=== PATIENT | male | born 1935 | race Caucasian/White ===

== ENCOUNTER → 2017-06-03 16:07 | Outpatient (CLI) | payer MEDICARE, SELFPAY ==
[2017-06-03 17:40] LABS: Absolute Lymphocyte Count 1.23 X10^3/ul (0.83-4.51); Absolute Neutrophil Count 0.5 X10^3/uL (2.0-7.7); Basophil# 0.01 X10^3/uL; Basophil% 0.4 % (0-1); Eosinophil# 0.03 X10^3/uL; Eosinophils% 1.2 % (0-5); Hematocrit 22.8 % (40-54); Hemoglobin 7.6 g/dl (13.0-16.5); Lymphocyte # 1.23 X10^3/ul (4.0); Lymphocyte % 49.4 % (19-41); Mean Corp Hgb Conc 33.3 g/gl (32-36); Mean Corpuscular Hgb 41.1 pg (27.0-32.0); Mean Corpuscular Volume 123.2 fL (80-94); Mean Platelet Vol. 10.4 fl (6.2-12.0); Monocyte# 0.72 X10^3/uL; Monocyte% 28.9 % (0-10); Neutrophil # 0.49 X10^3/uL (2.7-7.7); Neutrophil % 19.7 % (47-70); Platelet Count 194 K/mm3 (150-450); RBC Distribution Width CV 15.3 % (11.6-14.6); RBC Distribution Width SD 65.9 fl (35.1-43.9); Red Blood Count 1.85 M/mm3 (4.6-6.2); White Blood Count 2.5 K/mm3 (4.4-11.0)
[2017-06-03 17:44] LABS: Ferritin 330 ng/mL (26-388); Iron 76 ug/dL (65-175); Iron Binding Capacity,Total 208 ug/dL (250-450)
[2017-06-03 17:48] LABS: Differential Indicated SCAN CRITERIA MET; POSITIVE COUNT NO; POSITIVE DIFFERENTIAL YES; POSITIVE MORPHOLOGY YES
[2017-06-05 16:09] LABS: PROEL- A/G Ratio 1.4 (0.7-1.7); PROEL- Albumin 4.4 g/dL (2.9-4.4); PROEL- Alpha-1 Globulin 0.2 g/dL (0.0-0.4); PROEL- Alpha-2 Globulin 0.4 g/dL (0.4-1.0); PROEL- Beta Globulin 0.8 g/dL (0.7-1.3); PROEL- Gamma Globulin 1.7 g/dL (0.4-1.8); PROEL- Globulin, Total 3.1 g/dL (2.2-3.9); PROEL- TOTAL PROTEIN 7.5 g/dL (6.0-8.5)
[2017-06-08 16:08] LABS: PROELU- Albumin, Urine 55.2 % (.); PROELU- Alpha-1-Globulin,Ur 3.8 % (.); PROELU- Alpha-2-Globulin,Ur 8.4 % (.); PROELU- Beta Globulin, Ur 16.4 % (.); PROELU- Gamma Globulin, Ur 16.2 % (.); Total Protein, Ur 18.2 mg/dL (Not Estab.)
== END ==
PROVIDERS: Family Provider Family Medicine; PCP Family Medicine; Visit Provider Family Medicine
DX: D64.9 Anemia, unspecified (principal)
CPT/HCPCS: 36415; 82728; 83540; 83550; 84165; 84166; 85025

== ENCOUNTER → 2017-09-02 16:17 | Outpatient (CLI) | payer MEDICARE, SELFPAY ==
[2017-09-02 17:55] LABS: Absolute Lymphocyte Count 1.17 X10^3/ul (0.83-4.51); Absolute Neutrophil Count 0.8 X10^3/uL (2.0-7.7); Eosinophil# 0.02 X10^3/uL; Eosinophils% 0.8 % (0-5); Hematocrit 21.7 % (40-54); Hemoglobin 7.5 g/dl (13.0-16.5); Immature Platelet Fraction 6.6 % (1.0-7.9); Lymphocyte # 1.17 X10^3/ul (4.0); Lymphocyte % 46.4 % (19-41); Mean Corp Hgb Conc 34.6 g/gl (32-36); Mean Corpuscular Hgb 39.7 pg (27.0-32.0); Mean Corpuscular Volume 114.8 fL (80-94); Mean Platelet Vol. 10.9 fl (6.2-12.0); Monocyte# 0.53 X10^3/uL; Neutrophil # 0.79 X10^3/uL (2.7-7.7); Neutrophil % 31.4 % (47-70); Platelet Count 152 K/mm3 (150-450); RBC Distribution Width CV 15.8 % (11.6-14.6); RBC Distribution Width SD 64.7 fl (35.1-43.9); RET-HE 39.3 pg (30-35); Red Blood Count 1.89 M/mm3 (4.6-6.2); Reticulocyte Count 1.63 % (0.5-1.5); White Blood Count 2.5 K/mm3 (4.4-11.0)
[2017-09-02 18:07] LABS: Differential Indicated SCAN CRITERIA MET; POSITIVE COUNT NO; POSITIVE DIFFERENTIAL YES; POSITIVE MORPHOLOGY NO
[2017-09-02 18:14] LABS: Anion Gap 8 (5-15); BUN 24 mg/dL (7-18); BUN/Creat Ratio 29.3 RATIO (10-20); Calcium,Total 8.6 mg/dL (8.5-10.1); Chloride 106 mmol/L (98-107); Creatinine, Serum 0.82 mg/dL (0.70-1.30); EST Glomerular Filtration Rate 96 mL/min (>60); Est Glom Filt Rate - Afr Amer 116 mL/min (>60); Ferritin 277 ng/mL (26-388); Glucose 104 mg/dL (74-106); Iron 94 ug/dL (65-175); Iron Binding Capacity,Total 202 ug/dL (250-450); Potassium 3.9 mmol/L (3.5-5.1); Sodium Level 141 mmol/L (136-145)
[2017-09-02 18:50] LABS: Platelet Estimate ADEQUATE (ADEQ)
[2017-09-02 18:51] LABS: Anisocytosis 1+
[2017-09-02 18:52] LABS: Hypochromasia RARE; Macrocytosis 2+
[2017-09-02 18:53] LABS: Ovalocyte 2+; Schistocytes RARE; Tear Drop Cell RARE
== END ==
PROVIDERS: Family Provider Family Medicine; PCP Family Medicine; Visit Provider Family Medicine
DX: D64.9 Anemia, unspecified (principal); I95.1 Orthostatic hypotension
CPT/HCPCS: 36415; 80048; 82728; 83540; 83550; 85025; 85045

== ENCOUNTER 2017-10-10 21:50 | Inpatient (IN) | payer MEDICARE, SELFPAY ==
[2017-10-10 21:51] VITALS: BP 92/59; PULSE 36; RESP 16; TEMP 36.6; O2SAT 98; BMI 24.8
--- NOTE | 2017-10-10 21:58 | EKG12_ITS ---
Test Reason : Blood Pressure : / mmHG Vent. Rate : 076 BPM Atrial Rate : 060 BPM P-R Int : 180 ms QRS Dur : 134 ms QT Int : 434 ms P-R-T Axes : 053 -27 -01 degrees QTc Int : 488 ms Sinus rhythm with frequent and consecutive Premature ventricular complexes Right bundle branch block Abnormal ECG Confirmed by JUAN A MARTÍNEZ, CHRISTINE ([id number]), research editor EBENEZER CHINCHILLA ([id number]) on 10/12/2017 3:06:24 PM Referred By: HERSON Confirmed By:CHRISTINE VELAZCO MD
--- NOTE | 2017-10-10 22:04 | ED.VISSUMM ---
- ER Visit Summary Date of Service: 10/10/17 Chief Complaint: Shortness of breath History of Present Illness: The patient is a 82 M with history of myelodysplastic syndrome presents to the emergency department shortness of breath. Patient states that over the past 2 days, he said gradually increasing shortness of breath. It is worse with exertion. He does feel mildly dizzy. He does describe orthopnea. The patient states that he was diagnosed with CHF before, but has never had any history of cardiac disease. He is not on any other medications. He denies any fevers or chills. He denies any chest pain. Physical Examination: Vital signs reviewed General: Well-nourished, well-developed Head: Normocephalic, atraumatic Eyes: Pupils equal and reactive, extraocular muscles intact Neck, supple, no lymphadenopathy Heart: Irregular rate and rhythm Respiratory: No distress, crackles in the bases bilaterally Abdomen: Soft, nontender, nondistended, no peritoneal signs Back: Nontender Extremities: Nontender, 1+ symmetric edema, no cords Skin: Normal color no rash Neuro: Alert and oriented, no focal or lateralizing deficits Test Results: [] Emergency Department Course and Treatment: The patient was placed on a monitor. He was bradycardic in triage, when placed on a monitor, he was sinus rhythm with ventricular bigeminy. There was no acute ischemic change on his EKG. Patient was placed on oxygen and giving a small fluid bolus due to his hypotension. Hypotension was resolved. Chest x-ray does show some mild cephalization but no large pleural effusions. I do feel that he has a component of mild CHF. The patient also has worsening anemia. Might of his myelodysplastic syndrome, dyspnea, and CHF, I do feel that he is going to require transfusion. The patient has never had formal workup for CHF. I do feel that he would likely require an echo and cardiac monitoring and likely diuresis in between packed red blood cells. Family is comfortable this plan of care. The patient will be admitted at this time. Treatment Plan: [] Disposition: Admission Impression: 1. Dyspnea 2. Symptomatic anemia 3. New CHF This note was generated with [email or web address] software. It may contain incorrect words, spelling, and punctuation that were not noted in review of the chart prior to signing ED Disposition - Plan for ED Patient: Chief Complaint: Shortness of Breath Referrals: Jose Escamilla MD [Primary Care Provider] -
[2017-10-10 22:06] VITALS: O2SAT 98
--- NOTE | 2017-10-10 22:10 | RAD_ITS ---
STUDY: X-RAY CHEST REASON FOR EXAM: Male, 82 years old. COMPLAINS OF SOB, WEAKNESS TODAY, CONCERNED HIS CHF IS GETTING WORSE. HR 36 IN TRIAGE TECHNIQUE: Single frontal view of the chest. COMPARISON: April 16, 2017 FINDINGS: Chronic appearing increased interstitial lung markings. Stable prominence of the heena. There is no demonstrated pleural abnormality. Enlarged heart size. Normal mediastinum and heena. Normal visualized pulmonary arteries. There is atherosclerotic calcification of the aortic arch with tortuosity. There are diffuse degenerative changes of the visualized thoracic spine. There is degenerative osteoarthritis of the bilateral shoulders. There is no demonstrated abnormality of the visualized soft tissue structures of the upper abdomen. RAD/Chest 1 View (Portable) IMPRESSION: There are no acute findings. Electronically Signed: Johnny Stern MD at 22:40 EDT , Service support ,
[2017-10-10 22:11] LABS: Absolute Lymphocyte Count 1.25 X10^3/ul (0.83-4.51); Absolute Neutrophil Count 1.1 X10^3/uL (2.0-7.7); Basophil# 0.01 X10^3/uL; Basophil% 0.3 % (0-1); Eosinophil# 0.02 X10^3/uL; Eosinophils% 0.6 % (0-5); Hematocrit 19.4 % (40-54); Hemoglobin 6.6 g/dl (13.0-16.5); Lymphocyte # 1.25 X10^3/ul (4.0); Lymphocyte % 36.1 % (19-41); Mean Corpuscular Hgb 41.8 pg (27.0-32.0); Mean Corpuscular Volume 122.8 fL (80-94); Mean Platelet Vol. 11.3 fl (6.2-12.0); Monocyte# 1.03 X10^3/uL; Monocyte% 29.8 % (0-10); Neutrophil # 1.14 X10^3/uL (2.7-7.7); Neutrophil % 32.9 % (47-70); Platelet Count 127 K/mm3 (150-450); RBC Distribution Width CV 16.3 % (11.6-14.6); RBC Distribution Width SD 69.1 fl (35.1-43.9); Red Blood Count 1.58 M/mm3 (4.6-6.2); White Blood Count 3.5 K/mm3 (4.4-11.0)
[2017-10-10 22:16] LABS: POSITIVE COUNT NO; POSITIVE DIFFERENTIAL NO
[2017-10-10 22:17] LABS: Differential Indicated SCAN CRITERIA MET; POSITIVE MORPHOLOGY YES
[2017-10-10 22:22] LABS: Bacteria 0 SEEN /hpf (None Seen); Mucous, Urine 0 SEEN /hpf (<or=2+); Red Blood Cells-Urine 0 SEEN /hpf (0-5); Squamous Epithelial Cells - UA 0 SEEN /hpf (0-5); White Blood Cells 0 SEEN /hpf (0-5)
[2017-10-10 22:24] LABS: Color, Urine Yellow (Yellow); Glucose, Dipstick Normal (Normal); Ketone-Dipstick Negative (Negative); Leukocyte Esterase-Dipstick Negative /ul (Negative); Nitrite-Dipstick Negative (Negative); Occult Blood-Urine Negative /ul (Negative); Protein-Dipstick 15 mg/dl (Negative); Urine Bilirubin Dipstick Negative (Negative); Urine Clarity Clear (Clear); Urine Urobilinogen Normal (Normal)
[2017-10-10 22:30] LABS: ALB/GLOB Ratio 1.2 RATIO (0.9-2.4); AST(SGOT) 14 U/L (15-37); Alanine Aminotransfer ALT/SGPT 28 U/L (16-61); Alkaline Phosphatase 68 U/L (45-117); Anion Gap 8 (5-15); BUN 23 mg/dL (7-18); Calcium,Total 8.7 mg/dL (8.5-10.1); Chloride 102 mmol/L (98-107); Creatinine, Serum 0.85 mg/dL (0.70-1.30); EST Glomerular Filtration Rate 91 mL/min (>60); Est Glom Filt Rate - Afr Amer 111 mL/min (>60); Estimated Creatinine Clearance 69.18 ml/min; Globulin 3.4 g/dL (2.2-4.2); Glucose 94 mg/dL (74-106); Potassium 4.5 mmol/L (3.5-5.1); Protein, Total 7.4 g/dL (6.4-8.2); Sodium Level 137 mmol/L (136-145)
[2017-10-10 22:40] LABS: Lactic Acid 0.9 mmol/L (0.4-2.0)
[2017-10-10 22:44] LABS: Anisocytosis 1+; Differential Comment SCANNED; Ovalocyte 1+
[2017-10-10 22:53] LABS: BNP,B-Type NATRIURETIC PEPTIDE 1120.4 pg/mL (0-100)
--- NOTE | 2017-10-10 23:12 | HP.PCM_ITS ---
Problem List (1) Pulmonary edema Status: Acute (2) Dyspnea Status: Acute (3) MDS (myelodysplastic syndrome), low grade Status: Chronic (4) Anemia Status: Chronic Qualifiers: Bone marrow failure anemia type: unspecified bone marrow failure (5) Leukopenia Status: Chronic History of Present Illness Date of Admission: 10/10/17 Chief Complaint: Dyspnea The patient is a 82 year old male w/ h/o MDS admitted for dyspnea. He has been SOB for the past 3-4 days but within the last 24 hours, he noted his SOB has gotten much worse. Nothing appeared to make it better or worse. SOB is associated with a mild nonproductive cough. He has light headedness today as well. His SOB is constant and severe, interfering with his ADLs. He was diagnosis with heart failure before but is not on any medication. He has no other complaint. Past Medical History Past Medical History (Chronic Problems): Chronic Problems (Last Reviewed 10/11/17 @ 05:07 by Asa Mattson MD) MDS (myelodysplastic syndrome), low grade (Chronic) Anemia (Chronic) Leukopenia (Chronic) Medical History: Medical History (Last Reviewed 10/11/17 @ 05:07 by Asa Mattson MD) Bladder cancer C67.9 Bronchitis J40 Neutropenia D70.9 Allergies No Known Allergies Allergy (Verified 10/10/17 21:56) Home Medications: Ambulatory Orders Medication Instructions Recorded Multivitamin [Multiple Vitamins] 1 tab PO DAILY 06/26/16 Nighttime Sleep Aid 25 mg PO QHS 06/26/16 [place] Oil/[place]-3 Fatty Acids [Sv 2 tab PO BID 06/26/16 [place] Oil 1,000 mg Softgel] Ascorbic Acid [Vitamin C] 500 mg PO BID 08/18/16 Calcium Carbonate/Vitamin D3 2 tablet PO BID 08/18/16 [Calcium 500-Vit D3 600 Tablet] Ubidecarenone/Vit E Acetate [Co 1 each PO BID 10/10/17 Q-10 100 mg Softgel] Lives: Spouse/ Significant Other Smoking Status: Never smoker Alcohol: None Drugs: None Review of Systems Constitutional: Denies: Chills, Fever, Weight Change HEENT: Denies: Head Aches, Sinus Congestion, Sinus Drainage Cardiovascular: Denies: Chest Pain, Palpitations Respiratory: Denies: Cough, Shortness of breath at rest, Sputum production Gastrointestinal: Denies: Abdominal Pain, Nausea, Vomiting Genitourinary: Denies: Dysuria Musculoskeletal: Denies: Joint Pain, Joint Tenderness Skin: Denies: Rash, Wounds Neurological: Denies: Numbness, Tingling, Focal weakness Psychiatric: Denies: Anxiety, Depression, Homicidal Ideations, Suicidal Ideations Hematologic/ Lymphatic: Denies: Easy Bruising, Easy Bleeding VTE Information - Inpt Only VTE Present on Admission: No VTE Mechan Device Prophylaxis: SCD's VTE Pharm Prophylaxis ordered?: Yes Patient Problems: Active and Suspected Problems (Last Reviewed 10/11/17 @ 05:07 by Asa Mattson MD) Pulmonary edema (Acute) Dyspnea (Acute) - Physical Exam General: Alert, Oriented x3, Cooperative HEENT: Atraumatic, PERRLA, EOMI, Normocephalic Neck: Supple, No JVD, Negative Carotid Bruits Lungs: Diminished, Short of Breath Cardiovascular: No murmurs, Irregular Rate Abdomen: Bowel Sounds Present, Soft, Non Tender Extremities: No edema, Capillary Refill Less than 3 Seconds Skin: No rashes, No breakdown Musculoskeletal: No Tenderness to Palpation of Joints or Extremities Neurological: Cranial nerves II-XII grossly intact Psych/Mental Status: Normal Affect, Appropriate Vital Signs Temp Pulse Resp BP Pulse Ox 97.8 F 36 L 16 92/59 L 98 10/10/17 21:51 10/10/17 21:51 10/10/17 21:51 10/10/17 21:51 10/10/17 21:51 Oxygen Flow Rate (L/min) 2 Oxygen Delivery Method Nasal Cannula Weight: 78.5 kg Body Mass Index (BMI) 24.8 Laboratory Tests Past 24 Hrs 10/10/17 10/10/17 10/10/17 22:00 22:00 22:00 WBC 3.5 L RBC 1.58 L Hgb 6.6 L Hct 19.4 L MCV 122.8 H MCH 41.8 H MCHC 34.0 RDW 16.3 H RDW Differential 69.1 H Plt Count 127 L MPV 11.3 Immature Gran % (Auto) 0.300 Neut % (Auto) 32.9 L Lymph % (Auto) 36.1 [place] % (Auto) 29.8 H Eos % (Auto) 0.6 Baso % (Auto) 0.3 Absolute Neuts (auto) 1.1 L Absolute Lymphs (auto) 1.25 Total Counted Not Reportable Differential Comment SCANNED Anisocytosis 1+ Ovalocytes 1+ Sodium 137 Potassium 4.5 Chloride 102 Carbon Dioxide 27.0 Anion Gap 8 BUN 23 H Creatinine 0.85 Estim Creat Clear Calc 69.18 Est GFR (MDRD) Af Amer 111 Est GFR (MDRD) Non-Af 91 BUN/Creatinine Ratio 27.0 H Glucose 94 Lactic Acid 0.9 Calcium 8.7 Total Bilirubin 0.70 AST 14 L ALT 28 Alkaline Phosphatase 68 Troponin I < 0.015 B-Natriuretic Peptide Total Protein 7.4 Albumin 4.0 Globulin 3.4 Albumin/Globulin Ratio 1.2 Urine Color Urine Clarity Urine pH Ur Specific [place] Urine Protein Urine Glucose (UA) Urine Ketones Urine Occult Blood Urine Nitrite Urine Bilirubin Urine Urobilinogen Ur Leukocyte Esterase Urine RBC Urine WBC Ur Squamous Epith Cells Urine Bacteria Urine Mucus Blood Type Antibody Screen Crossmatch 10/10/17 10/10/17 10/10/17 22:00 22:20 22:26 WBC RBC Hgb Hct MCV MCH MCHC RDW RDW Differential Plt Count MPV Immature Gran % (Auto) Neut % (Auto) Lymph % (Auto) [place] % (Auto) Eos % (Auto) Baso % (Auto) Absolute Neuts (auto) Absolute Lymphs (auto) Total Counted Differential Comment Anisocytosis Ovalocytes Sodium Potassium Chloride Carbon Dioxide Anion Gap BUN Creatinine Estim Creat Clear Calc Est GFR (MDRD) Af Amer Est GFR (MDRD) Non-Af BUN/Creatinine Ratio Glucose Lactic Acid Calcium Total Bilirubin AST ALT Alkaline Phosphatase Troponin I B-Natriuretic Peptide 1120.4 H Total Protein Albumin Globulin Albumin/Globulin Ratio Urine Color Yellow Urine Clarity Clear Urine pH 6.0 Ur Specific [place] 1.020 Urine Protein 15 H Urine Glucose (UA) Normal Urine Ketones Negative Urine Occult Blood Negative Urine Nitrite Negative Urine Bilirubin Negative Urine Urobilinogen Normal Ur Leukocyte Esterase Negative Urine RBC 0 SEEN Urine WBC 0 SEEN Ur Squamous Epith Cells 0 SEEN Urine Bacteria 0 SEEN Urine Mucus 0 SEEN Blood Type Pending Antibody Screen Pending Crossmatch See Detail Assessment/Plan All Active Problems (Last Reviewed 10/11/17 @ 05:07 by Asa Mattson MD) Pulmonary edema (Acute) Dyspnea (Acute) 82 year old male w/ h/o MDS admitted for dyspnea. 1) SOB: Most likely secondary to heart failure. Will get trops. Will get ECHO. Will diuresis. Resume home meds. Will also get BNP. Will consult cards. 2) Acute symptomatic anemia: secondary to MDS. Transfuse 2 units PRBC. No acute e/o bleeding. Lasix given as well to prevent fluid overload. 3) Hypervolemia: Chest xray disclosed congestion. C/w IV lasix. 4) Prophylaxis: SCD / heparin.
[2017-10-10 23:14] VITALS: BP 114/50; PULSE 71; RESP 18; TEMP 36.6; O2SAT 95
[2017-10-10 23:16] VITALS: BP 114/50; PULSE 71; RESP 18; TEMP 36.6; O2SAT 95
[2017-10-11] VITALS (18 sets, daily range): BP systolic 101–128; BP diastolic 42–63; PULSE 61–93; RESP 16–21; TEMP 36.3–36.7; O2SAT 93–100; BMI 24.2
--- NOTE | 2017-10-11 00:50 | NURSING ---
Pt arrived to PCU with FAMILY SUPPORT SPECIALIST who had been floated to ED. Report received after Pt already in PCU room.
[2017-10-11 01:30] LABS: Thyroid Stim Hormone (TSH) 1.86 uIU/mL (0.358-3.74)
[2017-10-11 04:58] LABS: International Normalized Ratio 1.2; Prothrombin Time (Protime)PT. 15.6 SECONDS (11.7-14.9)
[2017-10-11 05:00] LABS: Absolute Lymphocyte Count 0.97 X10^3/ul (0.83-4.51); Absolute Neutrophil Count 0.7 X10^3/uL (2.0-7.7); Basophil# 0.01 X10^3/uL; Basophil% 0.4 % (0-1); Eosinophil# 0.02 X10^3/uL; Eosinophils% 0.8 % (0-5); Hematocrit 21.9 % (40-54); Hemoglobin 7.4 g/dl (13.0-16.5); Lymphocyte # 0.97 X10^3/ul (4.0); Lymphocyte % 40.2 % (19-41); Mean Corp Hgb Conc 33.8 g/gl (32-36); Mean Corpuscular Hgb 38.7 pg (27.0-32.0); Mean Corpuscular Volume 114.7 fL (80-94); Mean Platelet Vol. 11.8 fl (6.2-12.0); Monocyte# 0.66 X10^3/uL; Monocyte% 27.4 % (0-10); Neutrophil # 0.74 X10^3/uL (2.7-7.7); Neutrophil % 30.8 % (47-70); Platelet Count 122 K/mm3 (150-450); RBC Distribution Width CV 22.1 % (11.6-14.6); RBC Distribution Width SD 90.7 fl (35.1-43.9); Red Blood Count 1.91 M/mm3 (4.6-6.2); White Blood Count 2.4 K/mm3 (4.4-11.0)
[2017-10-11 05:02] LABS: Differential Indicated SCAN CRITERIA MET; POSITIVE COUNT NO; POSITIVE DIFFERENTIAL YES; POSITIVE MORPHOLOGY YES
[2017-10-11 05:17] LABS: Anion Gap 10 (5-15); BUN 22 mg/dL (7-18); BUN/Creat Ratio 31.8 RATIO (10-20); Calcium,Total 8.7 mg/dL (8.5-10.1); Chloride 104 mmol/L (98-107); Cholesterol 111 mg/dL (200); Creatinine, Serum 0.69 mg/dL (0.70-1.30); EST Glomerular Filtration Rate 116 mL/min (>60); Est Glom Filt Rate - Afr Amer 141 mL/min (>60); Estimated Creatinine Clearance 58.81 ml/min; Glucose 92 mg/dL (74-106); High Density Lipoprotein 52 mg/dL; Potassium 4.4 mmol/L (3.5-5.1); Sodium Level 139 mmol/L (136-145); Triglycerides 42 mg/dL; Very Low Density Lipoprotein 8 mg/dL (5-40)
[2017-10-11] MEDS: Heparin Injection (Vial) 5,000 UNIT/ML VIAL 5000 UNIT SC ×3 (05:21→21:18)
[2017-10-11 05:27] LABS: Anisocytosis 1+; Hypochromasia 1+; Macrocytosis 1+; Platelet Estimate SLT DEC (ADEQ)
--- NOTE | 2017-10-11 05:55 | ECHOD_ITS ---
Reason For Study: CHF Procedure This was a 2D Doppler, Color Flow transthoracic echocardiogram. The study was technically difficult. Due to arrhythmia. Exam performed portable in patient room. Left Ventricle Normal LV size. Left ventricular systolic function is lower limits of normal. The estimated ejection fraction is 52 %. Stage 2 diastolic dysfunction. No regional wall motion abnormalities noted. Right Ventricle Moderately dilated right ventricle. Mild global right ventricular systolic dysfunction. Atria The left atrium is severely enlarged. The right atrium is moderately enlarged. Mitral Valve Bileaflet diffuse mitral valve thickening. Mild-Moderate (1-2+) eccentric mitral valve insufficiency. Tricuspid Valve Normal tricuspid valve. Mild to moderate (1-2+) tricuspid valve insufficiency. Pulmonary artery systolic pressure is 42 mmHg. Mild pulmonary hypertension. Aortic Valve Trisinus/trileaflet aortic valve. Moderate focal aortic valve calcification. Pulmonic Valve Normal pulmonic valve. Great Vessels Normal aortic root. The pulmonary artery is normal size. Normal inferior vena cava. Pericardium/Pleural No pericardial effusion. MMode/2D Measurements & Calculations LVIDd: 6.0 cm IVSd: 1.1 cm LVOT diam: 2.6 cm LVIDs: 3.8 cm LVPWd: 1.1 cm LVOT area: 5.5 cm2 RVDd: 4.9 cm FS: 36.9 % Ao root diam: 3.5 cm LAV(MOD-bp): 150.0 ml LA A4 area: 37.9 cm2 LAV(MOD-bp) Indexed: 78.6 ml/m2 LAV(MOD-sp2): 122.0 ml LAV(MOD-sp4): 143.4 ml RA A4 area: 28.7 cm2 Doppler Measurements & Calculations MV E max vasile: 78.9 cm/sec Lat Peak E' Vasile: 5.8 cm/sec Med Peak E' Vasile: 7.7 cm/sec MV A max vasile: 46.4 cm/sec E/E' lat: 13.6 E/E' med: 10.2 MV E/A: 1.7 Ao V2 max: 286.9 cm/sec LV V1 max: 126.6 cm/sec MR max vasile: 404.2 cm/sec Ao max P.9 mmHg LV V1 max P.4 mmHg MR max P.0 mmHg Ao V2 mean: 178.5 cm/sec LV V1 mean P.8 mmHg Ao mean P.8 mmHg LV V1 mean: 77.5 cm/sec Ao V2 VTI: 56.6 cm LV V1 VTI: 25.4 cm ZAIN(I,D): 2.5 cm2 ZAIN(V,D): 2.4 cm2 SV(LVOT): 139.0 ml PA V2 max: 157.6 cm/sec PI end-d vasile: 89.5 cm/sec TR max vasile: 311.2 cm/sec TR max P.8 mmHg Interpretation Summary Stage 2 diastolic dysfunction. Normal LV size. Left ventricular systolic function is lower limits of normal. The estimated ejection fraction is 52 %. The left atrium is severely enlarged. Mild-Moderate (1-2+) eccentric mitral valve insufficiency. Pulmonary artery systolic pressure is 42 mmHg. Mild pulmonary hypertension. Moderate focal aortic valve calcification. Ordering Physician: Asa Mattson Referring Physician: Jose Escamilla Performed By: Teresa Lazcano, BHANU, RVT
[2017-10-11] MEDS: Carvedilol 3.125 MG TABLET PO ×2 (10:49→21:18)
[2017-10-11] MEDS: Furosemide 40 MG/4 ML Vial IV (10:49)
[2017-10-11] MEDS: Ascorbic Acid 500 MG Tablet PO ×2 (10:49→21:18)
--- NOTE | 2017-10-11 12:07 | PN_ITS ---
<Annie England - Last Filed: 10/11/17 12:08> Patient Problems: Active and Suspected Problems (Last Reviewed 10/11/17 @ 05:07 by Asa Mattson MD) Pulmonary edema (Acute) Dyspnea (Acute) Subjective: Patient seen and examined. Feels breathing is improved. Continues to have shortness of breath with minimal exertion. Denies chest pain. Denies other current complaints. - Physical Exam General: Alert, Oriented x3, Cooperative, No apparent distress HEENT: Atraumatic, PERRLA, EOMI, Normocephalic Oral: Moist Mucosa Neck: Supple, No JVD, Negative Carotid Bruits Lungs: Diminished, Rales, Rhonchi Cardiovascular: Regular rate, Regular Rhythm, Normal S1, Normal S2, No murmurs Abdomen: Bowel Sounds Present, Soft, Non Tender, Non-Distended Extremities: No clubbing, No cyanosis, Capillary Refill Less than 3 Seconds, Edema - Bilateral lower extremity Skin: No rashes, No breakdown Musculoskeletal: No Tenderness to Palpation of Joints or Extremities Neurological: Cranial nerves II-XII grossly intact Psych/Mental Status: Normal Affect, Appropriate Vital Signs Temp Pulse Resp BP Pulse Ox 97.9 F 93 20 H 117/51 L 93 10/11/17 10:40 10/11/17 10:40 10/11/17 10:40 10/11/17 10:40 10/11/17 10:40 Oxygen Flow Rate (L/min) 2 Oxygen Delivery Method Room Air Weight: 76.6 kg Body Mass Index (BMI) 24.2 Intake and Output for Last 24 Hours 10/09/17 10/10/17 10/11/17 23:59 23:59 23:59 Intake Total 1127 / 1127 Output Total 200 / 200 Balance 927 / 927 Laboratory Tests Past 24 Hrs 10/11/17 10/11/17 10/11/17 00:55 00:55 04:28 WBC 2.4 L RBC 1.91 L Hgb 7.4 L Hct 21.9 L MCV 114.7 H MCH 38.7 H MCHC 33.8 RDW 22.1 H RDW Differential 90.7 H Plt Count 122 L MPV 11.8 Immature Gran % (Auto) 0.400 Neut % (Auto) 30.8 L Lymph % (Auto) 40.2 [place] % (Auto) 27.4 H Eos % (Auto) 0.8 Baso % (Auto) 0.4 Absolute Neuts (auto) 0.7 L Absolute Lymphs (auto) 0.97 Total Counted Not Reportable Differential Comment SEE COMMENT Platelet Estimate SLT DEC Hypochromasia 1+ Anisocytosis 1+ Macrocytosis 1+ PT INR Sodium Potassium Chloride Carbon Dioxide Anion Gap BUN Creatinine Estim Creat Clear Calc Est GFR (MDRD) Af Amer Est GFR (MDRD) Non-Af BUN/Creatinine Ratio Glucose Calcium Magnesium 2.0 Troponin I < 0.015 Triglycerides Cholesterol LDL Cholesterol VLDL Cholesterol HDL Cholesterol TSH 1.86 10/11/17 10/11/17 10/11/17 04:28 04:28 04:28 WBC RBC Hgb Hct MCV MCH MCHC RDW RDW Differential Plt Count MPV Immature Gran % (Auto) Neut % (Auto) Lymph % (Auto) [place] % (Auto) Eos % (Auto) Baso % (Auto) Absolute Neuts (auto) Absolute Lymphs (auto) Total Counted Differential Comment Platelet Estimate Hypochromasia Anisocytosis Macrocytosis PT 15.6 H INR 1.2 Sodium 139 Potassium 4.4 Chloride 104 Carbon Dioxide 25.0 Anion Gap 10 BUN 22 H Creatinine 0.69 L Estim Creat Clear Calc 58.81 Est GFR (MDRD) Af Amer 141 Est GFR (MDRD) Non-Af 116 BUN/Creatinine Ratio 31.8 H Glucose 92 Calcium 8.7 Magnesium Troponin I < 0.015 Triglycerides 42 Cholesterol 111 LDL Cholesterol 51 VLDL Cholesterol 8 HDL Cholesterol 52 TSH Medical Necessity - Tobacco Use Smoking Status: Never smoker Assessment/Plan All Active Problems (Last Reviewed 10/11/17 @ 05:07 by Asa Mattson MD) Pulmonary edema (Acute) Dyspnea (Acute) Patient is an 82-year-old male admitted [id number] due to dyspnea. He has a past medical history of MDS, 1. Acute hypoxia secondary to suspected CHF-no previous diagnosis of CHF. BNP on admission 1120. Troponin negative. Chest x-ray admission with congestion. Pitting edema bilateral lower extremities. Echocardiogram pending. Continue Lasix 40 mg twice daily. Continue carvedilol 3.125 mg twice daily. Cardiology consult. Strict I&O. Daily weight. Recommend adding low-dose SHANNON inhibitor pending echocardiogram. Breathing improved with diuresis. Continue supplemental oxygen to maintain O2 sat above 90%. 2. Pancytopenia secondary to MDS with symptomatic anemia-status post 2 units packed red blood cells. Hemoglobin 6.6 on admission. Trend CBC. Patient's recent baseline hemoglobin appears to be 7.5. Recommend outpatient follow-up with heme oncology. DVT prophylaxis-heparin subcu. This patient was seen by ROCKY Avalos under the supervision of Dr. Dexter. <Westley Dexter - Last Filed: 10/11/17 13:50> - Physical Exam Vital Signs Temp Pulse Resp BP Pulse Ox 97.9 F 93 20 H 117/51 L 93 10/11/17 10:40 10/11/17 10:40 10/11/17 10:40 10/11/17 10:40 10/11/17 10:40 Oxygen Flow Rate (L/min) 2 Oxygen Delivery Method Room Air Weight: 76.6 kg Body Mass Index (BMI) 24.2 Intake and Output for Last 24 Hours 10/09/17 10/10/17 10/11/17 23:59 23:59 23:59 Intake Total 1727 / 1727 Output Total 900 / 900 Balance 827 / 827 Laboratory Tests Past 24 Hrs 10/11/17 10/11/17 10/11/17 00:55 00:55 04:28 WBC 2.4 L RBC 1.91 L Hgb 7.4 L Hct 21.9 L MCV 114.7 H MCH 38.7 H MCHC 33.8 RDW 22.1 H RDW Differential 90.7 H Plt Count 122 L MPV 11.8 Immature Gran % (Auto) 0.400 Neut % (Auto) 30.8 L Lymph % (Auto) 40.2 [place] % (Auto) 27.4 H Eos % (Auto) 0.8 Baso % (Auto) 0.4 Absolute Neuts (auto) 0.7 L Absolute Lymphs (auto) 0.97 Total Counted Not Reportable Differential Comment SEE COMMENT Platelet Estimate SLT DEC Hypochromasia 1+ Anisocytosis 1+ Macrocytosis 1+ PT INR Sodium Potassium Chloride Carbon Dioxide Anion Gap BUN Creatinine Estim Creat Clear Calc Est GFR (MDRD) Af Amer Est GFR (MDRD) Non-Af BUN/Creatinine Ratio Glucose Calcium Magnesium 2.0 Troponin I < 0.015 Triglycerides Cholesterol LDL Cholesterol VLDL Cholesterol HDL Cholesterol TSH 1.86 10/11/17 10/11/1710/11/18 04:28 04:28 04:28 WBC RBC Hgb Hct MCV MCH MCHC RDW RDW Differential Plt Count MPV Immature Gran % (Auto) Neut % (Auto) Lymph % (Auto) [place] % (Auto) Eos % (Auto) Baso % (Auto) Absolute Neuts (auto) Absolute Lymphs (auto) Total Counted Differential Comment Platelet Estimate Hypochromasia Anisocytosis Macrocytosis PT 15.6 H INR 1.2 Sodium 139 Potassium 4.4 Chloride 104 Carbon Dioxide 25.0 Anion Gap 10 BUN 22 H Creatinine 0.69 L Estim Creat Clear Calc 58.81 Est GFR (MDRD) Af Amer 141 Est GFR (MDRD) Non-Af 116 BUN/Creatinine Ratio 31.8 H Glucose 92 Calcium 8.7 Magnesium Troponin I < 0.015 Triglycerides 42 Cholesterol 111 LDL Cholesterol 51 VLDL Cholesterol 8 HDL Cholesterol 52 TSH Assessment/Plan This patient was seen in conjunction with ROCKY Avalos. I have independently interviewed and examined the patient and reviewed pertinent historical, laboratory, and other data. Please refer to ROCKY Avalos note for details of this patient's presentation, findings, and recommendations. I have reviewed ROCKY Avalos note and concur with documented findings. In brief, patient is an 82 -year-old M admitted with progressive shortness of breath Physical Examination: GENERAL: Cooperative HEENT: Clear conjunctiva, NECK; supple, normal thyroid, CHEST: Diminished to auscultation bilaterally, HEART: Regular S1 S2, no audible murmurs ABDOMEN: soft, normoactive bowel sounds, BILINGUAL INSIDE SALES REPRESENTATIVE: Awake; no lateralizing signs. SKIN: No Rash Assessment: 1. Acute respiratory insufficiency secondary to CHF 2. CHF suspected to be secondary to CHF with preserved ejection fraction ( diastolic dysfunction) 3. Pancytopenia secondary to myelodysplastic syndrome 4. Anemia secondary to myelodysplastic syndrome status post transfusion with 2 units PRBC in view of patient being symptomatic 5. DVT prophylaxis SC heparin Recommendations: 1. I have discussed the results of my overview and impressions with the patient 2. Options for management were reviewed Code Visit Inpatient E&M: 32443 [facility] L3
--- NOTE | 2017-10-11 12:24 | PCM.CONS.C ---
Problem List (1) Dyspnea Status: Acute Reason for Consult Date of Consultation: 10/11/17 History of Present Illness: The patient is a 82 year old M with past medical history significant for myelodysplastic syndrome. According to the patient, he has been feeling shortness of breath with exertion over the last few days. Denies any rest symptoms. According to him, ydaz-df-[id number] activity caused his shortness of breath. Denies any orthopnea. No paroxysmal nocturnal dyspnea. According to him, he may have had some swelling of his feet for the last few days as well. Denies any previous history of heart problems. Denies any palpitations. No syncope or presyncope. [] Past Medical History Allergies/Adverse Reactions: Allergies No Known Allergies Allergy (Verified 10/10/17 21:56) Home Medications: Ambulatory Orders Medication Instructions Recorded Multivitamin [Multiple Vitamins] 1 tab PO DAILY 06/26/16 Nighttime Sleep Aid 25 mg PO QHS 06/26/16 [place] Oil/[place]-3 Fatty Acids [Sv 2 tab PO BID 06/26/16 [place] Oil 1,000 mg Softgel] Ascorbic Acid [Vitamin C] 500 mg PO BID 08/18/16 Calcium Carbonate/Vitamin D3 2 tablet PO BID 08/18/16 [Calcium 500-Vit D3 600 Tablet] Ubidecarenone/Vit E Acetate [Co 1 each PO BID 10/10/17 Q-10 100 mg Softgel] Past Medical History (Chronic Problems): Chronic Problems (Last Reviewed 10/11/17 @ 05:07 by Asa Mattson MD) MDS (myelodysplastic syndrome), low grade (Chronic) Anemia (Chronic) Leukopenia (Chronic) Lives: Spouse/ Significant Other Smoking Status: Never smoker Alcohol: None Drugs: None Review of Systems - Review of Systems General: Denies: Fever, Chills HEENT: Denies: Head Aches Cardiovascular: Reports: Shortness of Breath with Exertion, Peripheral Edema - Mild. Denies: Chest Discomfort, Chest Discomfort at Rest, Chest Discomfort with Exertion, Shortness of Breath at Rest, Orthopnea, PND, Near Syncope, Syncope Respiratory: Denies: Non Productive Cough - Mild Gastrointestinal: Denies: Abdominal Discomfort, Jaundice, Nausea, Hematemesis, Melena Neurological: Denies: History of TIA, History of CVA Hematologic/ Lymphatic: Reports: Anemia. Denies: Easy Brusing, Easy Bleeding Subjectve: Comfortable. No apparent distress Objective: Vital Signs Temp Pulse Resp BP Pulse Ox 97.9 F 93 20 H 117/51 L 93 10/11/17 10:40 10/11/17 10:40 10/11/17 10:40 10/11/17 10:40 10/11/17 10:40 Oxygen Flow Rate (L/min) 2 Oxygen Delivery Method Room Air Weight: 76.6 kg Body Mass Index (BMI) 24.2 Intake and Output for Last 24 Hours 10/09/17 10/10/17 10/11/17 23:59 23:59 23:59 Intake Total 1127 / 1127 Output Total 200 / 200 Balance 927 / 927 General: Awake, Alert, Oriented x 3, No Acute Distress HEENT: Atraumatic, Normocephalic, Pallor Oral: Moist Mucosa Neck: Supple, - - Minimal JVD Lungs: Clear to auscultation Cardiovascular: Regular Rhythm, Normal S1, Normal S2 Vascular: No Carotid Bruits Abdomen: Bowel Sounds Present, Soft, Non Tender Extremities: No edema Neurological: No Focal Motor or Sensory Deficit Psych/Mental Status: Appropriate 10/11/17 00:55: Magnesium 2.0 10/11/17 00:55: Troponin I < 0.015 10/11/17 04:28: WBC 2.4 L, RBC 1.91 L, Hgb 7.4 L, Hct 21.9 L, MCV 114.7 H, MCH 38.7 H, MCHC 33.8, RDW 22.1 H, RDW Differential 90.7 H, Plt Count 122 L, MPV 11.8, Immature Gran % (Auto) 0.400, Neut % (Auto) 30.8 L, Lymph % (Auto) 40.2, [place] % (Auto) 27.4 H, Eos % (Auto) 0.8, Baso % (Auto) 0.4, Absolute Neuts (auto) 0.7 L, Total Counted Not Reportable 10/11/17 04:28: Sodium 139, Potassium 4.4, Chloride 104, Carbon Dioxide 25.0, Anion Gap 10, BUN 22 H, Creatinine 0.69 L, Est GFR (MDRD) Af Amer 141, Est GFR (MDRD) Non-Af 116, BUN/Creatinine Ratio 31.8 H, Glucose 92, Calcium 8.7, Triglycerides 42, Cholesterol 111, LDL Cholesterol 51, VLDL Cholesterol 8, HDL Cholesterol 52 10/11/17 04:28: PT 15.6 H, INR 1.2 10/11/17 04:28: Troponin I < 0.015 Rhythm: Normal sinus rhythm. Frequent PACs/fusion complexes EKG: Normal sinus rhythm. Left bundle branch block, frequent PACs with fusion complexes ECHO: Stress Test: Cardiac Cath: PCI: CT Surgery: Holter monitor: EPS: PPM: CXR: Chronic interstitial changes. Chest CT Scan: Assessment/Plan 1. Dyspnea. Most likely related to severe anemia with hemoglobin 6.6 on presentation. ProBNP is elevated. Heart failure could be playing a role but please note that the patient does not have any orthopnea or PND. Not overtly fluid volume overloaded. Change Lasix to p.o. check 2D echocardiogram with Doppler 2. Abnormal EKG with frequent ectopy. Agree with starting beta-leta 3. Severe anemia with myelodysplastic syndrome. Status post blood transfusion. Manage as per internal medicine/hematology oncology 4.
--- NOTE | 2017-10-11 12:36 | CON.PCM_ITS ---
Problem List (1) Dyspnea Status: Acute Reason for Consult Date of Consultation: 10/11/17 History of Present Illness: The patient is a 82 year old M with past medical history significant for myelodysplastic syndrome. According to the patient, he has been feeling shortness of breath with exertion over the last few days. Denies any rest symptoms. According to him, zdiu-nm-gbychggy activity caused his shortness of breath. Denies any orthopnea. No paroxysmal nocturnal dyspnea. According to him, he may have had some swelling of his feet for the last few days as well. Denies any previous history of heart problems. Denies any palpitations. No syncope or presyncope. [] Past Medical History Allergies/Adverse Reactions: Allergies No Known Allergies Allergy (Verified 10/10/17 21:56) Home Medications: Ambulatory Orders Medication Instructions Recorded Multivitamin [Multiple Vitamins] 1 tab PO DAILY 06/26/16 Nighttime Sleep Aid 25 mg PO QHS 06/26/16 [place] Oil/[place]-3 Fatty Acids [Sv 2 tab PO BID 06/26/16 [place] Oil 1,000 mg Softgel] Ascorbic Acid [Vitamin C] 500 mg PO BID 08/18/16 Calcium Carbonate/Vitamin D3 2 tablet PO BID 08/18/16 [Calcium 500-Vit D3 600 Tablet] Ubidecarenone/Vit E Acetate [Co 1 each PO BID 10/10/17 Q-10 100 mg Softgel] Past Medical History (Chronic Problems): Chronic Problems (Last Reviewed 10/11/17 @ 05:07 by Asa Mattson MD) MDS (myelodysplastic syndrome), low grade (Chronic) Anemia (Chronic) Leukopenia (Chronic) Lives: Spouse/ Significant Other Smoking Status: Never smoker Alcohol: None Drugs: None Review of Systems - Review of Systems General: Denies: Fever, Chills HEENT: Denies: Head Aches Cardiovascular: Reports: Shortness of Breath with Exertion, Peripheral Edema - Mild. Denies: Chest Discomfort, Chest Discomfort at Rest, Chest Discomfort with Exertion, Shortness of Breath at Rest, Orthopnea, PND, Near Syncope, Syncope Respiratory: Denies: Non Productive Cough - Mild Gastrointestinal: Denies: Abdominal Discomfort, Jaundice, Nausea, Hematemesis, Melena Neurological: Denies: History of TIA, History of CVA Hematologic/ Lymphatic: Reports: Anemia. Denies: Easy Brusing, Easy Bleeding Subjectve: Comfortable. No apparent distress Objective: Vital Signs Temp Pulse Resp BP Pulse Ox 97.9 F 93 20 H 117/51 L 93 10/11/17 10:40 10/11/17 10:40 10/11/17 10:40 10/11/17 10:40 10/11/17 10:40 Oxygen Flow Rate (L/min) 2 Oxygen Delivery Method Room Air Weight: 76.6 kg Body Mass Index (BMI) 24.2 Intake and Output for Last 24 Hours 10/09/17 10/10/17 10/11/17 23:59 23:59 23:59 Intake Total 1127 / 1127 Output Total 200 / 200 Balance 927 / 927 General: Awake, Alert, Oriented x 3, No Acute Distress HEENT: Atraumatic, Normocephalic, Pallor Oral: Moist Mucosa Neck: Supple, - - Minimal JVD Lungs: Clear to auscultation Cardiovascular: Regular Rhythm, Normal S1, Normal S2 Vascular: No Carotid Bruits Abdomen: Bowel Sounds Present, Soft, Non Tender Extremities: No edema Neurological: No Focal Motor or Sensory Deficit Psych/Mental Status: Appropriate 10/11/17 00:55: Magnesium 2.0 10/11/17 00:55: Troponin I < 0.015 10/11/17 04:28: WBC 2.4 L, RBC 1.91 L, Hgb 7.4 L, Hct 21.9 L, MCV 114.7 H, MCH 38.7 H, MCHC 33.8, RDW 22.1 H, RDW Differential 90.7 H, Plt Count 122 L, MPV 11.8, Immature Gran % (Auto) 0.400, Neut % (Auto) 30.8 L, Lymph % (Auto) 40.2, [place] % (Auto) 27.4 H, Eos % (Auto) 0.8, Baso % (Auto) 0.4, Absolute Neuts (auto ) 0.7 L, Total Counted Not Reportable 10/11/17 04:28: Sodium 139, Potassium 4.4, Chloride 104, Carbon Dioxide 25.0, Anion Gap 10, BUN 22 H, Creatinine 0.69 L, Est GFR (MDRD) Af Amer 141, Est GFR ( MDRD) Non-Af 116, BUN/Creatinine Ratio 31.8 H, Glucose 92, Calcium 8.7, Triglycerides 42, Cholesterol 111, LDL Cholesterol 51, VLDL Cholesterol 8, HDL Cholesterol 52 10/11/17 04:28: PT 15.6 H, INR 1.2 10/11/17 04:28: Troponin I < 0.015 Rhythm: Normal sinus rhythm. Frequent PACs/fusion complexes EKG: Normal sinus rhythm. Left bundle branch block, frequent PACs with fusion complexes ECHO: Stress Test: Cardiac Cath: PCI: CT Surgery: Holter monitor: EPS: PPM: CXR: Chronic interstitial changes. Chest CT Scan: Assessment/Plan 1. Dyspnea. Most likely related to severe anemia with hemoglobin 6.6 on presentation. ProBNP is elevated. Heart failure could be playing a role but please note that the patient does not have any orthopnea or PND. Not overtly fluid volume overloaded. Change Lasix to p.o. check 2D echocardiogram with Doppler 2. Abnormal EKG with frequent ectopy. Agree with starting beta-leta 3. Severe anemia with myelodysplastic syndrome. Status post blood transfusion. Manage as per internal medicine/hematology oncology 4.
--- NOTE | 2017-10-11 14:34 | CM.UR ---
Met face to face with patient and . See attached CM RN assmt. Denies any needs for home. No anticipated dc needs noted at this time. Kvng Jeffries RN, CCM.
[2017-10-11] MEDS: DiphenhydrAMINE 25 MG Capsule 50 MG PO (21:18)
[2017-10-12] VITALS (9 sets, daily range): BP systolic 96–123; BP diastolic 42–61; PULSE 63–67; RESP 14–18; TEMP 36.7–37.1; O2SAT 92–99
[2017-10-12] MEDS: Heparin Injection (Vial) 5,000 UNIT/ML VIAL 5000 UNIT SC (06:32)
[2017-10-12 06:42] LABS: Anion Gap 9 (5-15); BUN 26 mg/dL (7-18); BUN/Creat Ratio 31.5 RATIO (10-20); Calcium,Total 8.3 mg/dL (8.5-10.1); Chloride 104 mmol/L (98-107); Creatinine, Serum 0.82 mg/dL (0.70-1.30); EST Glomerular Filtration Rate 95 mL/min (>60); Est Glom Filt Rate - Afr Amer 115 mL/min (>60); Estimated Creatinine Clearance 71.71 ml/min; Glucose 87 mg/dL (74-106); Potassium 4.4 mmol/L (3.5-5.1); Sodium Level 140 mmol/L (136-145)
[2017-10-12 06:46] LABS: Hemoglobin 8.4 g/dl (13.0-16.5); Mean Corp Hgb Conc 33.6 g/gl (32-36); Mean Corpuscular Volume 110.1 fL (80-94); Mean Platelet Vol. 10.8 fl (6.2-12.0); Platelet Count 115 K/mm3 (150-450); RBC Distribution Width SD 93.6 fl (35.1-43.9); Red Blood Count 2.27 M/mm3 (4.6-6.2); White Blood Count 2.5 K/mm3 (4.4-11.0)
[2017-10-12 07:02] LABS: Scan Indicated on CBC? Y/N YES- FLAGS NOTED
[2017-10-12 07:19] LABS: Differential Comment SCANNED
[2017-10-12] MEDS: Ascorbic Acid 500 MG Tablet PO (10:42)
[2017-10-12] MEDS: Carvedilol 3.125 MG TABLET PO (10:42)
[2017-10-12] MEDS: Furosemide 40 MG Tablet PO (10:42)
--- NOTE | 2017-10-12 12:06 | PCM.PN.CARD ---
Subjectve: No complaints. No dyspnea. No orthopnea. No PND. Objective: Vital Signs Temp Pulse Resp BP Pulse Ox 98.7 F 64 18 96/42 L 98 10/12/17 10:39 10/12/17 10:39 10/12/17 10:39 10/12/17 10:39 10/12/17 10:39 Oxygen Flow Rate (L/min) 2 Oxygen Delivery Method Room Air Weight: 73.9 kg Body Mass Index (BMI) 24.2 Intake and Output for Last 24 Hours 10/10/17 10/11/17 10/12/17 23:59 23:59 23:59 Intake Total 1727 / 1727 360 / 360 Output Total 900 / 900 1025 / 1025 Balance 827 / 827 -665 / -665 General: Awake, Alert, Oriented x 3, No Acute Distress HEENT: Atraumatic Neck: Supple, No JVD Lungs: Clear to auscultation Cardiovascular: Regular Rhythm - 2/6 systolic murmur at apex and base Extremities: No edema Neurological: CN II-XII Intact Psych/Mental Status: Appropriate 10/12/17 05:55: WBC 2.5 L, RBC 2.27 L, Hgb 8.4 L, Hct 25.0 L, MCV 110.1 H, MCH 37.0 H, MCHC 33.6, RDW 24.0 H, RDW Differential 93.6 H, Plt Count 115 L, MPV 10.8 10/12/17 05:55: Sodium 140, Potassium 4.4, Chloride 104, Carbon Dioxide 27.0, Anion Gap 9, BUN 26 H, Creatinine 0.82, Est GFR (MDRD) Af Amer 115, Est GFR (MDRD) Non-Af 95, BUN/Creatinine Ratio 31.5 H, Glucose 87, Calcium 8.3 L Rhythm: Normal sinus rhythm with ventricular bigeminy EKG: ECHO: Preliminary echo shows normal LV systolic function. Increased left ventricular filling pressures. Mild aortic valve stenosis. Mild to moderate mitral regurgitation Stress Test: Cardiac Cath: PCI: CT Surgery: Holter monitor: EPS: PPM: CXR: Chest CT Scan: Medical Necessity - Tobacco Use Smoking Status: Never smoker Assessment/Plan 1. Dyspnea. Most likely related to severe anemia with hemoglobin 6.6 on presentation. Normal LV systolic function on echocardiogram. Change furosemide to 20 mg once daily 2. Ventricular ectopy. Continue beta leta 3. Severe anemia with myelodysplastic syndrome. Status post blood transfusion. Manage as per internal medicine/hematology oncology 4. Mild aortic valve stenosis 5. Sago-lk-okeiaglp mitral regurgitation. Continue furosemide 20 mg once daily May discharge home from a cardiology standpoint if blood pressure good. Follow-up in the office with Dr. Richardson
--- NOTE | 2017-10-12 12:12 | PN.CARD_ITS ---
Subjectve: No complaints. No dyspnea. No orthopnea. No PND. Objective: Vital Signs Temp Pulse Resp BP Pulse Ox 98.7 F 64 18 96/42 L 98 10/12/17 10:39 10/12/17 10:39 10/12/17 10:39 10/12/17 10:39 10/12/17 10:39 Oxygen Flow Rate (L/min) 2 Oxygen Delivery Method Room Air Weight: 73.9 kg Body Mass Index (BMI) 24.2 Intake and Output for Last 24 Hours 10/10/17 10/11/17 10/12/17 23:59 23:59 23:59 Intake Total 1727 / 1727 360 / 360 Output Total 900 / 900 1025 / 1025 Balance 827 / 827 -665 / -665 General: Awake, Alert, Oriented x 3, No Acute Distress HEENT: Atraumatic Neck: Supple, No JVD Lungs: Clear to auscultation Cardiovascular: Regular Rhythm - 2/6 systolic murmur at apex and base Extremities: No edema Neurological: CN II-XII Intact Psych/Mental Status: Appropriate 10/12/17 05:55: WBC 2.5 L, RBC 2.27 L, Hgb 8.4 L, Hct 25.0 L, MCV 110.1 H, MCH 37.0 H, MCHC 33.6, RDW 24.0 H, RDW Differential 93.6 H, Plt Count 115 L, MPV 10.8 10/12/17 05:55: Sodium 140, Potassium 4.4, Chloride 104, Carbon Dioxide 27.0, Anion Gap 9, BUN 26 H, Creatinine 0.82, Est GFR (MDRD) Af Amer 115, Est GFR ( MDRD) Non-Af 95, BUN/Creatinine Ratio 31.5 H, Glucose 87, Calcium 8.3 L Rhythm: Normal sinus rhythm with ventricular bigeminy EKG: ECHO: Preliminary echo shows normal LV systolic function. Increased left ventricular filling pressures. Mild aortic valve stenosis. Mild to moderate mitral regurgitation Stress Test: Cardiac Cath: PCI: CT Surgery: Holter monitor: EPS: PPM: CXR: Chest CT Scan: Medical Necessity - Tobacco Use Smoking Status: Never smoker Assessment/Plan 1. Dyspnea. Most likely related to severe anemia with hemoglobin 6.6 on presentation. Normal LV systolic function on echocardiogram. Change furosemide to 20 mg once daily 2. Ventricular ectopy. Continue beta leta 3. Severe anemia with myelodysplastic syndrome. Status post blood transfusion. Manage as per internal medicine/hematology oncology 4. Mild aortic valve stenosis 5. Klmx-qk-tzpuefdq mitral regurgitation. Continue furosemide 20 mg once daily May discharge home from a cardiology standpoint if blood pressure good. Follow- up in the office with Dr. Richardson
--- NOTE | 2017-10-12 12:27 | PCM.DC ---
- Discharge Diagnoses Current Active Problems: Current Active and Chronic Problems (Last Reviewed 10/11/17 @ 05:07 by Asa Mattson MD) Pulmonary edema (Acute) Dyspnea (Acute) You will use the following diet at home:: Cardiac Discharge Activity: Return to Normal Activity Call your doctor if you observe: Shortness of breath, Dizziness, Fainting spells, Chest pain, Increased palpitations (irregular heartbeat) Allergies/Adverse Reactions: Allergies No Known Allergies Allergy (Verified 10/10/17 21:56) Medications to take at Discharge Multivitamin [Multiple Vitamins] 1 tab PO DAILY 06/26/16 Nighttime Sleep Aid 25 mg PO QHS 06/26/16 [place] Oil/[place]-3 Fatty Acids [Sv [place] Oil 1,000 mg Softgel] 2 tab PO BID 06/26/16 Ascorbic Acid [Vitamin C] 500 mg PO BID 08/18/16 Calcium Carbonate/Vitamin D3 [Calcium 500-Vit D3 600 Tablet] 2 tablet PO BID 08/18/16 Ubidecarenone/Vit E Acetate [Co Q-10 100 mg Softgel] 1 each PO BID 10/10/17 Carvedilol [Coreg (Beta [place])] 3.125 mg PO BID #60 tab 10/12/17 Furosemide [Lasix] 20 mg PO DAILY #30 tab 10/12/17 The following prescriptions were given: Furosemide [Lasix] 20 mg PO DAILY #30 tab Carvedilol [Coreg (Beta [place])] 3.125 mg PO BID #60 tab Orders to be completed after discharge: CBC-Complete Blood Cnt No Diff Time Frame: 3 Days, Location: Laboratory Primary Care Physician: Jose Escamilla MD [Primary Care Provider] - Please follow up with your Primary Care Physician in: 1 Week Test Results: Test results from this visit will be discussed in further detail at your follow-up appointment, if applicable. Please Follow Up With: Demario Richardson MD - May see ADMISSIONS SPECIALIST/PA When: 1-2 Weeks Please Follow Up With: Stephanie Figueroa MD When: As scheduled Proposed Discharge Date: 10/12/17
--- NOTE | 2017-10-12 12:30 | DCINST_ITS ---
- Discharge Diagnoses Current Active Problems: Current Active and Chronic Problems (Last Reviewed 10/11/17 @ 05:07 by Asa Mattson MD) Pulmonary edema (Acute) Dyspnea (Acute) You will use the following diet at home:: Cardiac Discharge Activity: Return to Normal Activity Call your doctor if you observe: Shortness of breath, Dizziness, Fainting spells , Chest pain, Increased palpitations (irregular heartbeat) Allergies/Adverse Reactions: Allergies No Known Allergies Allergy (Verified 10/10/17 21:56) Medications to take at Discharge Multivitamin [Multiple Vitamins] 1 tab PO DAILY 06/26/16 Nighttime Sleep Aid 25 mg PO QHS 06/26/16 [place] Oil/[place]-3 Fatty Acids [Sv [place] Oil 1,000 mg Softgel] 2 tab PO BID Ascorbic Acid [Vitamin C] 500 mg PO BID 08/18/16 Calcium Carbonate/Vitamin D3 [Calcium 500-Vit D3 600 Tablet] 2 tablet PO BID Ubidecarenone/Vit E Acetate [Co Q-10 100 mg Softgel] 1 each PO BID 10/10/17 Carvedilol [Coreg (Beta [place])] 3.125 mg PO BID #60 tab 10/12/17 Furosemide [Lasix] 20 mg PO DAILY #30 tab 10/12/17 The following prescriptions were given: Furosemide [Lasix] 20 mg PO DAILY #30 tab Carvedilol [Coreg (Beta [place])] 3.125 mg PO BID #60 tab Orders to be completed after discharge: CBC-Complete Blood Cnt No Diff Time Frame: 3 Days, Location: Laboratory Primary Care Physician: Jose Escamilla MD [Primary Care Provider] - Please follow up with your Primary Care Physician in: 1 Week Test Results: Test results from this visit will be discussed in further detail at your follow- up appointment, if applicable. Please Follow Up With: Demario Richardson MD - May see FURNITURE ASSEMBLY SUPERVISOR/PA When: 1-2 Weeks Please Follow Up With: Stephanie Figueroa MD When: As scheduled Proposed Discharge Date: 10/12/17
--- NOTE | 2017-10-12 12:33 | PCM.DC.SUM ---
<Annie England - Last Filed: 10/12/17 12:42> Discharge Date and Diagnosis Date of Admission: 10/10/17 Date of Discharge: 10/12/17 - Primary Discharge Diagnosis Active and Suspected Problems (Last Reviewed 10/11/17 @ 05:07 by Asa Mattson MD) 1. Acute hypoxia secondary to acute diastolic CHF 2. Pancytopenia secondary to MDS with symptomatic anemia requiring 1 unit packed red blood cell transfusion 3. Ventricular ectopy - Secondary Discharge Diagnosis Chronic Problems (Last Reviewed 10/11/17 @ 05:07 by Asa Mattson MD) MDS (myelodysplastic syndrome), low grade (Chronic) Anemia (Chronic) Leukopenia (Chronic) Hospital Course and Treatment Imaging Results: Diagnostic Data Chest X-Ray 10/10/17 22:10 IMPRESSION: There are no acute findings. Electronically Signed: Johnny Stern MD at 22:40 EDT , Service support , Dr. Hanna- Cardiology Summary of Care Provided: Patient is an 82-year-old male admitted 7017 due to dyspnea. He has a past medical history of MDS, 1. Acute hypoxia secondary to acute diastolic CHF-no previous diagnosis of CHF. BNP on admission 1120. Troponin negative. Chest x-ray admission with congestion. Cardiology consulted during admission. Patient will be discharged on Lasix 20 mg daily and carvedilol 3.125 mg twice daily. Follow-up with Dr. Richardson and 1-2 weeks. Echocardiogram shows an EF of 52%, stage II diastolic dysfunction, mild to moderate mitral valve insufficiency, RVSP estimated to be 42 mmHg, mild pulmonary hypertension. Walking pulse ox completed prior to discharge and patient did not require further supplemental oxygen. 2. Pancytopenia secondary to MDS with symptomatic anemia-status post 1 unit packed red blood cells. Hemoglobin 6.6 on admission. Patient's recent baseline hemoglobin appears to be 7.5. Repeat CBC in 3 days. Follow up with Dr. Figueroa, hem/oncology as scheduled. 3. Ventricular ectopy-multiple PVCs. Started on beta-naman as noted above. General: Alert, Oriented x3, Cooperative, No apparent distress HEENT: Atraumatic, PERRLA, EOMI, Normocephalic Oral: Moist Mucosa Neck: Supple, No JVD, Negative Carotid Bruits Lungs: Diminished, clear to auscultation Cardiovascular: Regular rate, Regular Rhythm, Normal S1, Normal S2, No murmurs Abdomen: Bowel Sounds Present, Soft, Non Tender, Non-Distended Extremities: No clubbing, No cyanosis, Capillary Refill Less than 3 Seconds, Edema nonpitting bilateral lower extremity Skin: No rashes, No breakdown Musculoskeletal: No Tenderness to Palpation of Joints or Extremities Neurological: Cranial nerves II-XII grossly intact Psych/Mental Status: Normal Affect, Appropriate Patient seen exam prior to discharge. Physical assessment as noted above. Patient is stable for discharge home with the follow-up recommendations as noted above. This patient was seen by ROCKY Avalos under the supervision of Dr. Atkinson. Discharge Diet: Low fat/ Low Cholesterol Discharge Activity: Return to Normal Activity Call your doctor if you observe: Shortness of breath, Dizziness, Fainting spells, Chest pain, Increased palpitations (irregular heartbeat) Home Medications: Medications to take at Discharge Multivitamin [Multiple Vitamins] 1 tab PO DAILY 06/26/16 Nighttime Sleep Aid 25 mg PO QHS 06/26/16 [place] Oil/[place]-3 Fatty Acids [Sv [place] Oil 1,000 mg Softgel] 2 tab PO BID 06/26/16 Ascorbic Acid [Vitamin C] 500 mg PO BID 08/18/16 Calcium Carbonate/Vitamin D3 [Calcium 500-Vit D3 600 Tablet] 2 tablet PO BID 08/18/16 Ubidecarenone/Vit E Acetate [Co Q-10 100 mg Softgel] 1 each PO BID 10/10/17 Carvedilol [Coreg (Beta [place])] 3.125 mg PO BID #60 tab 10/12/17 Furosemide [Lasix] 20 mg PO DAILY #30 tab 10/12/17 Following Prescrptions Were Given to Patient: Furosemide [Lasix] 20 mg PO DAILY #30 tab Carvedilol [Coreg (Beta [place])] 3.125 mg PO BID #60 tab Primary Care Physician: Jose Escamilla MD [Primary Care Provider] - Please follow up with your Primary Care Physician in: 1 Week Please Follow Up With: Demario Richardson MD - May see CREW TEAM MEMBER/PA When: 1-2 Weeks Please Follow Up With: Stephanie Figureoa MD When: As scheduled Disposition: Home Minutes spent on discharge:: 35 Patient Condition:: Stable Medical Necessity - Tobacco Use Smoking Status: Never smoker Meaningful Use Info Meaningful Use Diagnoses (Choose all that apply): CHF - CHF SHANNON/ARB ordered at discharge?: No Reason SHANNON/ARB not ordered?: Allergy Documented LVEF (%): 52 - ACEi not indicated, normal EF <Jose Atkinson - Last Filed: 10/12/17 15:23> Discharge Date and Diagnosis - Secondary Discharge Diagnosis Chronic Problems (Last Reviewed 10/11/17 @ 05:07 by Asa Mattson MD) MDS (myelodysplastic syndrome), low grade (Chronic) Anemia (Chronic) Leukopenia (Chronic) Hospital Course and Treatment Summary of Care Provided: Patient seen and examined independently. Data reviewed. I agree with the above note by the nurse practitioner. The patient is a 82 year old M presents with shortness of breath as noted the patient was hypoxic but I do not see any supporting data to support that. Patient did have some pulmonary edema which appear to be related with diastolic heart failure. Patient was also anemic with a hemoglobin of 6.4. Possibly the heart failure may been high output heart failure due to his anemia. Patient does have a known history of myelodysplastic syndrome. Patient was transfused 1 unit of packed red blood cells and his hemoglobin is currently 8.4. It is recommended the patient have routine blood work upon discharge and to follow-up with his trash hauler, Dr. Landa, in the coming weeks. [] Discharge Diet: Low fat/ Low Cholesterol Discharge Activity: Return to Normal Activity Call your doctor if you observe: Shortness of breath, Dizziness, Fainting spells, Chest pain, Increased palpitations (irregular heartbeat) Disposition: Home Patient Condition:: Stable Meaningful Use Info Meaningful Use Diagnoses (Choose all that apply): CHF - CHF SHANNON/ARB ordered at discharge?: No Reason SHANNON/ARB not ordered?: Allergy Documented LVEF (%): 52 Code Visit Inpatient E&M: 88486 Disch Hosp
--- NOTE | 2017-10-12 12:39 | DS.PCM_ITS ---
<Annie England - Last Filed: 10/12/17 12:42> Discharge Date and Diagnosis Date of Admission: 10/10/17 Date of Discharge: 10/12/17 - Primary Discharge Diagnosis Active and Suspected Problems (Last Reviewed 10/11/17 @ 05:07 by Asa Mattson MD) 1. Acute hypoxia secondary to acute diastolic CHF 2. Pancytopenia secondary to MDS with symptomatic anemia requiring 1 unit packed red blood cell transfusion 3. Ventricular ectopy - Secondary Discharge Diagnosis Chronic Problems (Last Reviewed 10/11/17 @ 05:07 by Asa Mattson MD) MDS (myelodysplastic syndrome), low grade (Chronic) Anemia (Chronic) Leukopenia (Chronic) Hospital Course and Treatment Imaging Results: Diagnostic Data Chest X-Ray 10/10/17 22:10 IMPRESSION: There are no acute findings. Electronically Signed: Johnny Stern MD at 22:40 EDT , Service support , Dr. Hanna- Cardiology Summary of Care Provided: Patient is an 82-year-old male admitted 7017 due to dyspnea. He has a past medical history of MDS, 1. Acute hypoxia secondary to acute diastolic CHF-no previous diagnosis of CHF. BNP on admission 1120. Troponin negative. Chest x-ray admission with congestion. Cardiology consulted during admission. Patient will be discharged on Lasix 20 mg daily and carvedilol 3.125 mg twice daily. Follow-up with Dr. Richardson and 1-2 weeks. Echocardiogram shows an EF of 52%, stage II diastolic dysfunction, mild to moderate mitral valve insufficiency, RVSP estimated to be 42 mmHg, mild pulmonary hypertension. Walking pulse ox completed prior to discharge and patient did not require further supplemental oxygen. 2. Pancytopenia secondary to MDS with symptomatic anemia-status post 1 unit packed red blood cells. Hemoglobin 6.6 on admission. Patient's recent baseline hemoglobin appears to be 7.5. Repeat CBC in 3 days. Follow up with Dr. Figueroa , hem/oncology as scheduled. 3. Ventricular ectopy-multiple PVCs. Started on beta-naman as noted above. General: Alert, Oriented x3, Cooperative, No apparent distress HEENT: Atraumatic, PERRLA, EOMI, Normocephalic Oral: Moist Mucosa Neck: Supple, No JVD, Negative Carotid Bruits Lungs: Diminished, clear to auscultation Cardiovascular: Regular rate, Regular Rhythm, Normal S1, Normal S2, No murmurs Abdomen: Bowel Sounds Present, Soft, Non Tender, Non-Distended Extremities: No clubbing, No cyanosis, Capillary Refill Less than 3 Seconds, Edema nonpitting bilateral lower extremity Skin: No rashes, No breakdown Musculoskeletal: No Tenderness to Palpation of Joints or Extremities Neurological: Cranial nerves II-XII grossly intact Psych/Mental Status: Normal Affect, Appropriate Patient seen exam prior to discharge. Physical assessment as noted above. Patient is stable for discharge home with the follow-up recommendations as noted above. This patient was seen by ROCKY Avalos under the supervision of Dr. Atkinson. Discharge Diet: Low fat/ Low Cholesterol Discharge Activity: Return to Normal Activity Call your doctor if you observe: Shortness of breath, Dizziness, Fainting spells , Chest pain, Increased palpitations (irregular heartbeat) Home Medications: Medications to take at Discharge Multivitamin [Multiple Vitamins] 1 tab PO DAILY 06/26/16 Nighttime Sleep Aid 25 mg PO QHS 06/26/16 [place] Oil/[place]-3 Fatty Acids [Sv [place] Oil 1,000 mg Softgel] 2 tab PO BID Ascorbic Acid [Vitamin C] 500 mg PO BID 08/18/16 Calcium Carbonate/Vitamin D3 [Calcium 500-Vit D3 600 Tablet] 2 tablet PO BID Ubidecarenone/Vit E Acetate [Co Q-10 100 mg Softgel] 1 each PO BID 10/10/17 Carvedilol [Coreg (Beta Naman)] 3.125 mg PO BID #60 tab 10/12/17 Furosemide [Lasix] 20 mg PO DAILY #30 tab 10/12/17 Following Prescrptions Were Given to Patient: Furosemide [Lasix] 20 mg PO DAILY #30 tab Carvedilol [Coreg (Beta Naman)] 3.125 mg PO BID #60 tab Primary Care Physician: Jose Escamilla MD [Primary Care Provider] - Please follow up with your Primary Care Physician in: 1 Week Please Follow Up With: Demario Richardson MD - May see ACCOUNTING MANAGER ASSISTANT CONTROLLER/PA When: 1-2 Weeks Please Follow Up With: Stephanie Figueroa MD When: As scheduled Disposition: Home Minutes spent on discharge:: 35 Patient Condition:: Stable Medical Necessity - Tobacco Use Smoking Status: Never smoker Meaningful Use Info Meaningful Use Diagnoses (Choose all that apply): CHF - CHF SHANNON/ARB ordered at discharge?: No Reason SHANNON/ARB not ordered?: Allergy Documented LVEF (%): 52 - ACEi not indicated, normal EF <Jose Atkinson - Last Filed: 10/12/17 15:23> Discharge Date and Diagnosis - Secondary Discharge Diagnosis Chronic Problems (Last Reviewed 10/11/17 @ 05:07 by Asa Mattson MD) MDS (myelodysplastic syndrome), low grade (Chronic) Anemia (Chronic) Leukopenia (Chronic) Hospital Course and Treatment Summary of Care Provided: Patient seen and examined independently. Data reviewed. I agree with the above note by the nurse practitioner. The patient is a 82 year old M presents with shortness of breath as noted the patient was hypoxic but I do not see any supporting data to support that. Patient did have some pulmonary edema which appear to be related with diastolic heart failure. Patient was also anemic with a hemoglobin of 6.4. Possibly the heart failure may been high output heart failure due to his anemia. Patient does have a known history of myelodysplastic syndrome. Patient was transfused 1 unit of packed red blood cells and his hemoglobin is currently 8.4. 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 [] Discharge Diet: Low fat/ Low Cholesterol Discharge Activity: Return to Normal Activity Call your doctor if you observe: Shortness of breath, Dizziness, Fainting spells , Chest pain, Increased palpitations (irregular heartbeat) Disposition: Home Patient Condition:: Stable Meaningful Use Info Meaningful Use Diagnoses (Choose all that apply): CHF - CHF SHANNON/ARB ordered at discharge?: No Reason SHANNON/ARB not ordered?: Allergy Documented LVEF (%): 52 Code Visit Inpatient E&M: 67285 Disch Hosp
== END 2017-10-12 15:22 | disposition home or self-care (01) | DRG 808 ==
LOC: ED 23:19 → PCU 10-11 00:21
PROVIDERS: Nurse Practitioner Family; Admitting Provider Internal Medicine; Emergency Provider Emergency Medicine; Family Provider Family Medicine; PCP Family Medicine
DX: D61.818 Other pancytopenia (principal); I50.31 Acute diastolic (congestive) heart failure; D46.9 Myelodysplastic syndrome, unspecified; R09.02 Hypoxemia; I08.0 Rheumatic disorders of both mitral and aortic valves; I49.3 Ventricular premature depolarization; I27.20 Pulmonary hypertension, unspecified
CPT/HCPCS: 36415; 71045; 80048; 80053; 80061; 81001; 83605; 83735; 83880; 84443; 84484; 85025; 85027; 85610; 86850; 86900; 86920; 86922; 93005; 93306; 97802; 99285; J7040; P9016; A4216; J1940

== ENCOUNTER → 2017-10-15 09:53 | Outpatient (CLI) | payer MEDICARE, SELFPAY ==
[2017-10-15 10:34] LABS: Hematocrit 24.8 % (40-54); Hemoglobin 8.2 g/dl (13.0-16.5); Mean Corp Hgb Conc 33.1 g/gl (32-36); Mean Corpuscular Hgb 38.5 pg (27.0-32.0); Mean Corpuscular Volume 116.4 fL (80-94); Mean Platelet Vol. 11.7 fl (6.2-12.0); Platelet Count 120 K/mm3 (150-450); RBC Distribution Width CV 21.2 % (11.6-14.6); RBC Distribution Width SD 85.5 fl (35.1-43.9); Red Blood Count 2.13 M/mm3 (4.6-6.2); Scan Indicated on CBC? Y/N YES- FLAGS NOTED; White Blood Count 1.9 K/mm3 (4.4-11.0)
[2017-10-15 10:52] LABS: Differential Comment SCANNED
== END ==
PROVIDERS: Family Provider Family Medicine; PCP Family Medicine; Visit Provider Nurse Practitioner Family
DX: D61.818 Other pancytopenia (principal)
CPT/HCPCS: 36415; 85027

== ENCOUNTER → 2017-11-11 16:03 | Outpatient (CLI) | payer MEDICARE, SELFPAY ==
[2017-11-11 16:26] LABS: Absolute Lymphocyte Count 0.91 X10^3/ul (0.83-4.51); Absolute Neutrophil Count 0.4 X10^3/uL (2.0-7.7); Basophil# 0.01 X10^3/uL; Basophil% 0.5 % (0-1); Eosinophil# 0.01 X10^3/uL; Eosinophils% 0.5 % (0-5); Hematocrit 21.7 % (40-54); Hemoglobin 7.3 g/dl (13.0-16.5); Immature Platelet Fraction 6.5 % (1.0-7.9); Lymphocyte # 0.91 X10^3/ul (4.0); Lymphocyte % 46.4 % (19-41); Mean Corp Hgb Conc 33.6 g/gl (32-36); Mean Corpuscular Hgb 38.2 pg (27.0-32.0); Mean Corpuscular Volume 113.6 fL (80-94); Monocyte# 0.65 X10^3/uL; Monocyte% 33.2 % (0-10); Neutrophil # 0.38 X10^3/uL (2.7-7.7); Neutrophil % 19.4 % (47-70); Platelet Count 155 K/mm3 (150-450); RBC Distribution Width CV 20.2 % (11.6-14.6); RET-HE 38.3 pg (30-35); Red Blood Count 1.91 M/mm3 (4.6-6.2); Reticulocyte Count 1.58 % (0.5-1.5)
[2017-11-11 16:48] LABS: Ferritin 335 ng/mL (26-388); Iron Binding Capacity,Total 196 ug/dL (250-450)
[2017-11-11 16:49] LABS: Differential Indicated SCAN CRITERIA MET; POSITIVE COUNT NO; POSITIVE DIFFERENTIAL YES; POSITIVE MORPHOLOGY YES
== END ==
PROVIDERS: Family Provider Family Medicine; PCP Family Medicine; Visit Provider Family Medicine
DX: D64.9 Anemia, unspecified (principal)
CPT/HCPCS: 36415; 82728; 83550; 85025; 85045

== ENCOUNTER → 2018-01-26 09:45 | Outpatient (CLI) | payer MEDICARE, SELFPAY | PROVIDERS: Family Provider Family Medicine; PCP Family Medicine; Referring Provider Internal Medicine Hematology & Oncology; Visit Provider Internal Medicine Hematology & Oncology | DX: D46.20 Refractory anemia with excess of blasts, unspecified (principal) | CPT/HCPCS: 86850; 86900; 86920; 86922 ==

== ENCOUNTER 2019-03-21 08:13 | Observation (INO) | payer MEDICARE, SELFPAY ==
[2019-03-17 13:58] VITALS: BMI 23.8
[2019-03-21] VITALS (15 sets, daily range): BP systolic 91–125; BP diastolic 44–60; PULSE 66–79; RESP 15–16; TEMP 36.3–36.7; O2SAT 92–99; BMI 22.7; BMI 22.8
--- NOTE | 2019-03-21 08:16 | PCM.HP.BLA ---
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: No Is patient in pain?: No Allergies No Known Allergies Allergy (Verified 03/17/19 13:58) Medications Multivitamin [Multiple Vitamins] 1 tab PO DAILY 06/26/16 [History Confirmed 03/17/19] Nighttime Sleep Aid 25 mg PO QHS 06/26/16 [History Confirmed 03/17/19] [place] Oil/[place]-3 Fatty Acids [Sv [place] Oil 1,000 mg Softgel] 2 tab PO BID 06/26/16 [History Confirmed 03/17/19] Ascorbic Acid [Vitamin C] 500 mg PO BID 08/18/16 [History Confirmed 03/17/19] Calcium Carbonate/Vitamin D3 [Calcium 500-Vit D3 600 Tablet] 2 tab PO BID 08/18/16 [History Confirmed 03/17/19] vitamin E 200 unit capsule 200 unit PO DAILY 02/22/18 [History Confirmed 03/17/19] carvedilol 3.125 mg tablet 3.125 mg PO BID #180 tab 03/14/19 [Rx Confirmed 03/17/19] furosemide 20 mg tablet 20 mg PO DAILY #90 tab 03/14/19 [Rx Confirmed 03/17/19] omeprazole 20 mg capsule,delayed release 20 mg PO BID #60 cap 03/17/19 [Rx Confirmed 03/17/19] [facility] Medical History Anemia (Chronic) Leukopenia (Chronic) Chronic diastolic (congestive) heart failure (Chronic) Nonrheumatic mitral (valve) insufficiency (Chronic) Secondary pulmonary hypertension (Chronic) Premature ventricular contractions (Chronic) MDS (myelodysplastic syndrome), low grade (Chronic) Educational circumstance (Inactive) Anemia (Chronic) Bladder cancer (Chronic) Bronchitis (Chronic) Leukopenia (Chronic) Neutropenia (Chronic) Pulmonary edema (Resolved) Dyspnea (Inactive) Surgical History History of hernia repair (Resolved) History of bladder surgery (Resolved) Family History Mother Diabetes Father Alzheimers disease Social History (Updated 03/17/19 @ 14:49 by Reyes Wilhelm MD) Smoking Status: Never smoker alcohol intake: never caffeine: No HPI HPI HPI: BRYON CHINCHILLA, is a 83 M who presents to the office today for HPI HPI Surgical H&P: Yes HPI: BRYON CHINCHILLA, is a 83 M who presents to the office today for black tarry stools. The patient has a history of myelodysplastic disease and has been getting regular transfusions for over a year. The patient's hemoglobin was 5.7 last week and he received transfusion. He reports that his stools have become darker and darker and now they are black. He is having some epigastric pain. Patient reports he has never been scoped before. He says that his abdomen starts churning and he feels like he needs to vomit but he is unable to. ROS General General: Yes fatigue; no weight change or appetite HEENT HEENT: No difficulty swallowing, eye injury or eye surgery Endo Endocrine: No thyroid disease or diabetes mellitus Skin Skin: No rash or changing moles Musc Musculoskeletal: No back problems, arthritis or rheumatoid arthritis Cardio Cardiovascular: No murmur, pacemaker, heart disease, atrial fibrillation, high blood pressure, heart attack, heart stent, palpitations, shortness of breat with exertion or chest pain Psych Psychiatric: No depression or anxiety Resp Respiratory: No shortness of breath, No sleep apnea, No cough, No COPD, No asthma, No emphysema, No wheezing Gastro Gastrointestinal: Yes abdominal pain, Yes nausea or vomiting, No diarrhea, No constipation, Yes blood in stool, No acid reflux, No hemorrhoids, No ulcers, No gallbladder problem, Yes black,tarry stools Jhonny Hematologic: No blood thinners, Yes blood disorders, Yes bleeding Neuro Neurologic: Yes system reviewed and no additional complaints, except as docu Exam Const General: cooperative Nutritional Appearance: thin Orientation: alert, oriented x3 HENMT Head: normal to inspection Ears: hearing grossly normal bilaterally Eyes General: appearance normal, both eyes and all related structures Visual Dunaway: normal visual dunaway by confrontation Neck Neck: normal visual inspection Chest Chest palpation & inspection: normal inspection of the chest Resp Effort & Inspection: normal respiratory effort Auscultation: clear to auscultation bilaterally Cardio Rate: regular rate Rhythm: regular rhythm Heart Sounds: no murmurs GI Inspection: non-distended Palpation: soft, nontender Musc Cervical Spine: normal cervical lordosis, cervical ROM normal Skin General: no rashes or lesions noted Neuro General: alert, oriented x3 Cranial Nerves: CN's II-XI intact bilaterally Cognition: normal cognition Extrem General: normal to inspection, full ROM Psych Appearance: grossly normal Affect: normal affect Assessment & Plan Problems 1. Anemia, unspecified type D64.9 Bone marrow failure anemia type: unspecified bone marrow failure 2. Black stools K92.1 Plan The patient has a history of myelodysplastic anemia. He has macrocytic anemia. The patient notes that his stool has been progressively getting more black. He also has abdominal pain with nausea. Patient has a history of heart disease and was recently seen by cardiology. He is on Lasix. Patient is slightly hypotensive today and has been receiving multiple transfusions. I would like to a direct admit him Thursday morning and check his hemoglobin and transfuse as necessary. I will also start him on IV fluids for his bowel prep. Plan for EGD and colonoscopy on Thursday. I will also order a CT scan of his abdomen and pelvis to rule out any occult malignancy causing his anemia. I explained endoscopy in detail to the patient. I explained the risks including but not limited to stroke or heart attack with anesthesia, perforation of the GI tract, bleeding, infection. I explained that any of these could necessitate further emergency surgery. The patient understands and all questions were answered sufficiently. The patient wishes to proceed with procedure. I discussed with Dr. Figueroa. Reyes Wilhelm MD Pager: [facility] [address] [place] [address], [address] [place] [address] Office:
[2019-03-21 08:40] LABS: Absolute Neutrophil Count 0.7 X10^3/uL (2.0-7.7); Basophil# 0.01 X10^3/uL; Basophil% 0.4 % (0-1); Eosinophil# 0.01 X10^3/uL; Eosinophils% 0.4 % (0-5); Hematocrit 20.8 % (40-54); Hemoglobin 6.9 g/dL (13.0-16.5); Lymphocyte % 32.4 % (19-41); Mean Corp Hgb Conc 33.2 g/dL (32-36); Mean Corpuscular Hgb 34.3 pg (27.0-32.0); Mean Corpuscular Volume 103.5 fL (80-94); Mean Platelet Vol. 10.9 fl (6.2-12.0); Monocyte# 0.91 X10^3/uL; Monocyte% 36.8 % (0-10); NRBC Flagged by Analyzer 0 % (0-5); Neutrophil % 28.4 % (47-70); POSITIVE DIFFERENTIAL YES; POSITIVE MORPHOLOGY YES; Platelet Count 116 K/mm3 (150-450); RBC Distribution Width CV 23.2 % (11.6-14.6); RBC Distribution Width SD 82.5 fl (35.1-43.9); Red Blood Count 2.01 M/mm3 (4.6-6.2); White Blood Count 2.5 K/mm3 (4.4-11.0)
[2019-03-21 08:44] LABS: Differential Indicated SCAN CRITERIA MET
[2019-03-21 09:04] LABS: Anisocytosis 1+
[2019-03-21 09:07] LABS: Anion Gap 4 (5-15); BUN 24 mg/dL (7-18); BUN/Creat Ratio 35.3 RATIO (10-20); Calcium,Total 8.8 mg/dL (8.5-10.1); Chloride 103 mmol/L (98-107); Creatinine, Serum 0.68 mg/dL (0.70-1.30); EST Glomerular Filtration Rate 118 mL/min (>60); Est Glom Filt Rate - Afr Amer 143 mL/min (>60); Estimated Creatinine Clearance 55.34 ml/min; Glucose 126 mg/dL (74-106); Potassium 4.1 mmol/L (3.5-5.1); Sodium Level 137 mmol/L (136-145)
[2019-03-21] MEDS: Bisacodyl 5 MG Tablet 20 MG PO (13:05)
--- NOTE | 2019-03-21 14:52 | CHAPLAIN ---
Type of Pastoral Visit _x__ Initial Visit ___ Follow-up Visit ___ On-call Visit ___ General Patient Visit ___ Spiritual Assessment ___ Family Conference ___ Bereavement ___ Rapid Response ___ Code Blue ___ Other (describe below) Pastoral Care Referral From _x__ Patient ___ Family ___ Nurse ___ Physician ___ Production Sanitizer ___ Refrigerated Cargo Clerk ___ Other (describe below) Sacrament/Intervention _x__ Active listening ___ Anointing ___ Methodist ___ Bereavement ___ Communion _x__ Ashley exploration ___ ___ Life review _x__ Prayer ___ Reconciliation ___ Sacrament of Sick _x__ Supportive presence ___ Wedding ___ Other (describe below) Pastoral Comments
[2019-03-21] MEDS: Polyethylene Glycol 3350 BOWEL PREP PO (15:03)
[2019-03-21] MEDS: 0.9% Normal Saline 1,000 ML 100 ML IV (17:13)
[2019-03-21] MEDS: Pantoprazole Sodium 20 MG Tablet PO (22:44)
[2019-03-21] MEDS: Carvedilol 3.125 MG TABLET PO (22:44)
[2019-03-22] VITALS (11 sets, daily range): BP systolic 96–113; BP diastolic 43–68; PULSE 64–69; RESP 14–16; TEMP 36.6–37; O2SAT 92–98
--- NOTE | 2019-03-22 | COLBX_PTH ---
PATIENT: BRYON CHINCHILLA LOC: PCU U#:[id number] AGE/SX: 83/M ROOM: [facility] RE03/21/[address]: Dr. Reyes Wilhelm MD : 1935 BED: 1 DIS: 03/22/2019 SPEC #: [id number] RECD: 03/22/19 13:24 STATUS: NIKKI REAlbino #: [id number] KEVIN: 03/22/19 00:[address]: Reyes Wilhelm DEPT: SURGICAL PATHOLOGY RECD BY: Efe Kearney ENTERED: 03/22/19 13:24 SP TYPE: COLON BX OTHR DR: Dr. Jose Escamilla MD Tissues: Sigmoid colon biopsy Procedures: Surgery Specimen Level IV HEADER OPERATION: Colonoscopy, EGD ([facility] [place] PRE-OP DIAGNOSIS: Anemia, black stools TISSUE SUBMITTED: Sigmoid colon biopsy MICROSCOPIC DIAGNOSIS Sigmoid colon, biopsy: Tubular adenoma. SJ:inge 03/23/19 MICROSCOPIC DESCRIPTION Slides are reviewed. GROSS DESCRIPTION Received in fixative is one container labeled with the patient's name and designated sigmoid colon biopsy. The specimen consists of a piece of rasheed-pink polyp measuring 0.7 x 0.6 x 0.2 cm. The specimen is totally submitted in one cassette. / SJ:inge 03/22/19 TC:1 CPT: 54651
[2019-03-22] MEDS: 0.9% Normal Saline 1,000 ML 100 ML IV ×2 (01:54→11:27)
--- NOTE | 2019-03-22 05:55 | EKG12_ITS ---
Test Reason : AM EKG Blood Pressure : / mmHG Vent. Rate : 065 BPM Atrial Rate : 065 BPM P-R Int : 206 ms QRS Dur : 154 ms QT Int : 470 ms P-R-T Axes : 073 -43 -34 degrees QTc Int : 488 ms Normal sinus rhythm Left axis deviation Right bundle branch block Abnormal ECG When compared with ECG of 10-OCT-2017 22:05, Premature ventricular complexes are no longer Present Questionable change in QRS duration Confirmed by DEB MARTÍNEZ, TIMOTHY ([id number]), bush regenerator EBENEZER CHINCHILLA ([id number]) on 03/28/2019 12:57:11 PM Referred By: Reyes Wilhelm Confirmed By:CARLOS EDUARDO BOYD MD
[2019-03-22 05:59] LABS: Absolute Lymphocyte Count 0.82 X10^3/uL (0.83-4.51); Absolute Neutrophil Count 0.5 X10^3/uL (2.0-7.7); Basophil# 0.02 X10^3/uL; Eosinophil# 0.01 X10^3/uL; Eosinophils% 0.5 % (0-5); Hematocrit 25.1 % (40-54); Hemoglobin 8.5 g/dL (13.0-16.5); Lymphocyte # 0.82 X10^3/ul (4.0); Lymphocyte % 39.6 % (19-41); Mean Corp Hgb Conc 33.9 g/dL (32-36); Mean Corpuscular Hgb 33.3 pg (27.0-32.0); Mean Corpuscular Volume 98.4 fL (80-94); Mean Platelet Vol. 11.4 fl (6.2-12.0); Monocyte# 0.69 X10^3/uL; Monocyte% 33.3 % (0-10); NRBC Flagged by Analyzer 0 % (0-5); Neutrophil % 24.2 % (47-70); POSITIVE DIFFERENTIAL YES; POSITIVE MORPHOLOGY YES; Platelet Count 118 K/mm3 (150-450); RBC Distribution Width SD 74.5 fl (35.1-43.9); Red Blood Count 2.55 M/mm3 (4.6-6.2); White Blood Count 2.1 K/mm3 (4.4-11.0)
[2019-03-22 06:06] LABS: International Normalized Ratio 1.4; Partial Thromboplast Time 35.8 Seconds (24.1-36.2); Prothrombin Time (Protime)PT. 16.9 SECONDS (11.7-14.9)
[2019-03-22 06:15] LABS: Anion Gap 4 (5-15); BUN 17 mg/dL (7-18); Calcium,Total 8.5 mg/dL (8.5-10.1); Chloride 103 mmol/L (98-107); Creatinine, Serum 0.53 mg/dL (0.70-1.30); EST Glomerular Filtration Rate 157 mL/min (>60); Est Glom Filt Rate - Afr Amer 190 mL/min (>60); Estimated Creatinine Clearance 55.34 ml/min; Glucose 102 mg/dL (74-106); Potassium 4.4 mmol/L (3.5-5.1); Sodium Level 137 mmol/L (136-145)
[2019-03-22 06:29] LABS: Differential Indicated SCAN CRITERIA MET
[2019-03-22 06:55] LABS: Differential Comment SCANNED
[2019-03-22 06:56] LABS: Anisocytosis 1+
[2019-03-22] MEDS: Carvedilol 3.125 MG TABLET PO (10:27)
[2019-03-22] MEDS: Pantoprazole Sodium 20 MG Tablet PO (10:27)
--- NOTE | 2019-03-22 12:56 | OP.EGD_ITS ---
Patient Name: Ivan Sena Procedure Date: 03/22/2019 11:47 AM Date of : 1935 Age: 83 Procedure: Upper GI endoscopy Indications: Iron deficiency anemia Providers: Reyes Wilhelm MD Referring MD: Reyes Wilhelm MD Requesting Provider: Stephanie Figueroa Medicines: Monitored Anesthesia Care Patient Profile: This is an 83 year old male. Refer to note in patient chart for documentation of history and physical. Complications: No immediate complications. Procedure: Pre-Anesthesia Assessment: - Prior to the procedure, a History and Physical was performed, and patient medications and allergies were reviewed. The patient's tolerance of previous anesthesia was also reviewed. The risks and benefits of the procedure and the sedation options and risks were discussed with the patient. All questions were answered, and informed consent was obtained. Prior Anticoagulants: The patient has taken no previous anticoagulant or antiplatelet agents. After reviewing the risks and benefits, the patient was deemed in satisfactory condition to undergo the procedure. After obtaining informed consent, the endoscope was passed under direct vision. Throughout the procedure, the patient's blood pressure, pulse, and oxygen saturations were monitored continuously. The gastroscope was introduced through the mouth, and advanced to the second part of duodenum. The upper GI endoscopy was accomplished without difficulty. The patient tolerated the procedure well. Scope In: 12:18:57 PM Scope Out: 12:21:24 PM Total Procedure Duration Time 0 hours 2 minutes 27 seconds Findings: The esophagus was normal. The stomach was normal. The examined duodenum was normal. Impression: - Normal esophagus. - Normal stomach. - Normal examined duodenum. - No specimens collected. Recommendation: - Discharge patient to home. - Resume previous diet. - Continue present medications. Procedure Code(s): --- Professional --- 18802, Esophagogastroduodenoscopy, flexible, transoral; diagnostic, including collection of specimen(s) by brushing or washing, when performed (separate procedure) Diagnosis Code(s): --- Professional --- D50.9, Iron deficiency anemia, unspecified CPT copyright 2017 [employer]. All rights reserved. The codes documented in this report are preliminary and upon global sourcing manager review may be revised to meet current compliance requirements. Reyes Wilhelm MD 03/22/2019 12:56:04 PM This report has been signed electronically. Number of Addenda: 0 Note Initiated On: 03/22/2019 11:47 AM
--- NOTE | 2019-03-22 12:57 | PCM.DC ---
You will use the following diet at home:: No restrictions, Regular Your food should be the consistency of: Regular Discharge Activity: Return to Normal Activity, May Shower Call your doctor if your incision/area has: Increased Pain/ Swelling Call your doctor if you observe: Fever of 101 or Higher Allergies/Adverse Reactions: Allergies No Known Allergies Allergy (Verified 03/21/19 09:05) Medications to take at Discharge Multivitamin [Multiple Vitamins] 1 tab PO DAILY 06/26/16 Nighttime Sleep Aid 25 mg PO QHS 06/26/16 [place] Oil/[place]-3 Fatty Acids [Sv [place] Oil 1,000 mg Softgel] 2 tab PO BID 06/26/16 Ascorbic Acid [Vitamin C] 500 mg PO BID 08/18/16 Calcium Carbonate/Vitamin D3 [Calcium 500-Vit D3 600 Tablet] 2 tab PO BID 08/18/16 carvedilol 3.125 mg tablet 3.125 mg PO BID #180 tab 03/14/19 furosemide 20 mg tablet 20 mg PO DAILY #90 tab 03/14/19 omeprazole 20 mg capsule,delayed release 20 mg PO BID #60 cap 03/17/19 Primary Care Physician: Jose Escamilla MD [Primary Care Provider] - Test Results: Test results from this visit will be discussed in further detail at your follow-up appointment, if applicable. Please Follow Up With: Stephanie Figueroa MD When: as scheduled
--- NOTE | 2019-03-22 12:58 | OP.COLON_ITS ---
Patient Name: Ivan Sena Procedure Date: 03/22/2019 12:21 PM Date of : 1935 Age: 83 Procedure: Colonoscopy Indications: Iron deficiency anemia Providers: Reyes Wilhelm MD Referring MD: Reyes Wilhelm MD Medicines: Monitored Anesthesia Care Patient Profile: This is an 83 year old male. Refer to note in patient chart for documentation of history and physical. Last Colonoscopy: none. The patient's first colonoscopy is today. Complications: No immediate complications. Estimated blood loss: Minimal. Procedure: Pre-Anesthesia Assessment: - Prior to the procedure, a History and Physical was performed, and patient medications and allergies were reviewed. The patient's tolerance of previous anesthesia was also reviewed. The risks and benefits of the procedure and the sedation options and risks were discussed with the patient. All questions were answered, and informed consent was obtained. Prior Anticoagulants: The patient has taken no previous anticoagulant or antiplatelet agents. After reviewing the risks and benefits, the patient was deemed in satisfactory condition to undergo the procedure. After I obtained informed consent, the scope was passed under direct vision. Throughout the procedure, the patient's blood pressure, pulse, and oxygen saturations were monitored continuously. The pediatric colonoscope was introduced through the anus and advanced to the cecum, identified by appendiceal orifice and ileocecal valve. The colonoscopy was performed without difficulty. The patient tolerated the procedure well. The quality of the bowel preparation was good. Scope In: 12:24:26 PM Scope Withdrawal Time 0 hours 6 minutes 3 seconds Scope Out: 12:47:15 PM Total Procedure Duration Time 0 hours 22 minutes 49 seconds Findings: A polyp was found in the sigmoid colon. The polyp was pedunculated. The polyp was removed with a hot snare. Resection and retrieval were complete. The exam was otherwise without abnormality. Impression: - One polyp in the sigmoid colon, removed with a hot snare. Resected and retrieved. - The examination was otherwise normal. Recommendation: - Discharge patient to home. - Resume previous diet. - Continue present medications. - Await pathology results. - Repeat colonoscopy for surveillance based on pathology results. Procedure Code(s): --- Professional --- 63313, Colonoscopy, flexible; with removal of tumor(s), polyp(s), or other lesion(s) by snare technique Diagnosis Code(s): --- Professional --- D12.5, Benign neoplasm of sigmoid colon D50.9, Iron deficiency anemia, unspecified CPT copyright 2017 [employer]. All rights reserved. The codes documented in this report are preliminary and upon oven dumper review may be revised to meet current compliance requirements. Reyes Wilhelm MD 03/22/2019 12:57:34 PM This report has been signed electronically. Number of Addenda: 0 Note Initiated On: 03/22/2019 12:21 PM
--- NOTE | 2019-03-22 14:04 | CASEMGMT ---
Case Management Progress Note: This law writer to patient bedside, introduced self and role. Explained/reviewed CROWDER form in regards to current hospital treatment for Anemia this admission. Informed outpatient billing is determined by his insurance plan and continual review is conducted to see if there are any condition changes that may warrant Inpatient status. Patient acknowledged and stated understanding of CROWDER form, denies any issues, concerns or questions regarding CROWDER form. Patient signed form which was placed in hard chart, patient provided a copy. Hanny Lynn RNCM
--- NOTE | 2019-03-22 14:13 | PHA.DC.MR ---
Pharmacy Service has performed discharge medication reconciliation for this patient. No new medications at time of discharge; medications reviewed are previously reported home medications. The patient's discharge medication list was reviewed for discrepancies and discrepancies were resolved. Home Medications Multivitamin [Multiple Vitamins] 1 tab PO DAILY 06/26/16 Nighttime Sleep Aid 25 mg PO QHS 06/26/16 [place] Oil/[place]-3 Fatty Acids [Sv [place] Oil 1,000 mg Softgel] 2 tab PO BID 06/26/16 Ascorbic Acid [Vitamin C] 500 mg PO BID 08/18/16 Calcium Carbonate/Vitamin D3 [Calcium 500-Vit D3 600 Tablet] 2 tab PO BID 08/18/16 carvedilol 3.125 mg tablet 3.125 mg PO BID #180 tab 03/14/19 furosemide 20 mg tablet 20 mg PO DAILY #90 tab 03/14/19 omeprazole 20 mg capsule,delayed release 20 mg PO BID #60 cap 03/17/19
== END 2019-03-22 12:58 | disposition home or self-care (01) ==
PROVIDERS: Anesthesiology; Admitting Provider Surgery; Family Provider Family Medicine; PCP Family Medicine; Referring Provider Surgery; Visit Provider Surgery
PROC: 0DJD8ZZ Inspection of Lower Intestinal Tract, Via Natural or Artificial Opening Endoscopic (ICD-10-PCS; CPT 45378; principal; 2019-03-22 12:25)
DX: D50.9 Iron deficiency anemia, unspecified (principal); D12.5 Benign neoplasm of sigmoid colon; D46.9 Myelodysplastic syndrome, unspecified; Z79.899 Other long term (current) drug therapy; I50.32 Chronic diastolic (congestive) heart failure; I27.20 Pulmonary hypertension, unspecified; K92.1 Melena
CPT/HCPCS: 43235; 45385; 36415; 80048; 85025; 85610; 85730; 86850; 86900; 86901; 86920; 86922; 88305; 93005; 96360; 96361; 97802; 99218; J7030; J7040; P9016; G0378; G0379; J1610

== ENCOUNTER 2019-06-13 15:00 | Observation (INO) | payer MEDICARE, SELFPAY ==
[2019-06-13] VITALS (10 sets, daily range): BP systolic 85–106; BP diastolic 49–63; PULSE 67–75; RESP 16–21; TEMP 36.3–36.8; O2SAT 92–97; BMI 23.4; BMI 23.3; BMI 22.9
--- NOTE | 2019-06-13 15:34 | EKG12_ITS ---
Test Reason : Blood Pressure : / mmHG Vent. Rate : 069 BPM Atrial Rate : 069 BPM P-R Int : 202 ms QRS Dur : 160 ms QT Int : 442 ms P-R-T Axes : 064 -31 -17 degrees QTc Int : 473 ms Normal sinus rhythm Left axis deviation Right bundle branch block T wave abnormality, consider lateral ischemia Abnormal ECG Confirmed by MONO MARTÍNEZ, MANUEL ([id number]), desk editor MOOSE ROWAN ([id number]) on 06/14/2019 1:44:26 PM Referred By: FRANKIE Confirmed By:MANUEL VILLAREAL MD
--- NOTE | 2019-06-13 15:34 | RAD_ITS ---
STUDY: X-RAY CHEST REASON FOR EXAM: Male, 83 years old. Anemia and sob TECHNIQUE: Single AP portable view of the chest. COMPARISON: Comparison is made with prior examination October 10, 2017. FINDINGS: There is evidence of vascular congestion and mild degree of CHF. Mild increased markings at the lung bases suggestive of bibasilar atelectasis. There is no demonstrated pleural abnormality. There is moderate cardiac enlargement. Normal mediastinum and heena. Normal visualized pulmonary arteries. There is atherosclerotic calcification of the aortic arch with tortuosity. Normal visualized thoracic spine. Normal visualized ribs, clavicles, and shoulders. There is no demonstrated abnormality of the visualized soft tissue structures of the upper abdomen. RAD/Chest 1 View (Portable) IMPRESSION: Cardiomegaly. Mild degree of vascular congestion and CHF. Electronically Signed: David Quintana, at 15:53 EDT , Service support ,
--- NOTE | 2019-06-13 15:39 | ED.DCSUM_ITS ---
- ER Visit Summary Date of Service: 06/13/19 Chief Complaint: Anemia History of Present Illness: The patient is a 83 M 3 of myelodysplastic syndrome with chronic anemia and frequent transfusions known CHF. Patient states he was getting blood transfusions about every 2 weeks and now gets them almost weekly. He denies chest pain. Said he does get lightheaded if he stands up too quickly. And is chronically short of breath when he is anemic. Denies any fever or chills. No melena. He is on no blood thinners. Physical Examination: No acute distress vital signs stable afebrile except for blood pressure 85/49.. Pulse ox 95% on room air no signs of hypoxia. H EENT exam unremarkable. Neck nontender no JVD. No lymphadenopathy. Lungs clear to auscultation bilaterally. Heart regular rhythm rate about 70 with 4-6 systolic ejection murmur. Patient tells me he has a known heart murmur. Abdomen soft nontender normal bowel sounds no peritoneal signs. Extremities moves all 4. 1+ pitting edema both lower extremities. Calves are nontender. He has normal motor strength in both upper and lower extremities. Neurologically is awake and alert with no focal motor deficits. Test Results: Patient had a CBC already drawn today his white count is 1.8 his h emoglobin 6.3 which is around his baseline. EKG shows normal sinus rhythm with a rate of 69 with a right bundle branch block. No acute ischemia. BMP pending. Chest x-ray cardiomegaly and mild CHF. No effusions. Read both by myself the radiologist. Emergency Department Course and Treatment: Oncology called in prior to patient's arrival. Their plan is to have the patient typed and cross. Transfuse 2 units admitted to the hospital. Treatment Plan: I will speak to the hospitalist about admission and transfusion. Disposition: Admission Impression: Acute on chronic anemia History of myelodysplastic syndrome with frequent transfusions Acute on chronic CHF This note was generated with [employer] dictation software. It may contain incorrect words, spelling, and punctuation that were not noted in review of the chart prior to signing ED Disposition - Plan for ED Patient: Referrals: Jose Escamilla MD [Primary Care Provider] -
[2019-06-13 16:10] LABS: Anion Gap 4 (5-15); BUN 17 mg/dL (7-18); BUN/Creat Ratio 31.2 RATIO (10-20); Calcium,Total 8.6 mg/dL (8.5-10.1); Chloride 104 mmol/L (98-107); Creatinine, Serum 0.54 mg/dL (0.70-1.30); EST Glomerular Filtration Rate 153 mL/min (>60); Est Glom Filt Rate - Afr Amer 185 mL/min (>60); Estimated Creatinine Clearance 57.79 ml/min; Glucose 118 mg/dL (74-106); Potassium 4.4 mmol/L (3.5-5.1); Sodium Level 138 mmol/L (136-145)
--- NOTE | 2019-06-13 16:27 | NURSING ---
PCU OBS OSMIN ANEMIA, CHD, HX OF MD SYNDROME
--- NOTE | 2019-06-13 16:58 | PCM.HP.STD ---
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 Denies chest pain but has shortness of breath on exertion, dizziness, lightheadedness on standing or quick change of posture. Currently patient feels more short of breath than usual. Patient also history of congestive heart failure. He was sent to ER when hemoglobin was found to be 6.3 in PCP office. WBC count 1.8 thousand, platelet 214,000. Patient follows recreation therapy teacher Dr. Figueroa [] Chest x-ray done in the ER. It was independently reviewed and shows chronic interstitial lung markings but no acute change although is reported as vascular congestion and mild CHF. 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 Chronic diastolic (congestive) heart failure (Chronic) Nonrheumatic mitral (valve) insufficiency (Chronic) Secondary pulmonary hypertension (Chronic) Premature ventricular contractions (Chronic) MDS (myelodysplastic syndrome), low grade (Chronic) Medical History: Medical History (Last Reviewed 06/13/19 @ 14:08 by Judy Hall) Anemia (Chronic) D64.9 Leukopenia (Chronic) D72.819 Chronic diastolic (congestive) heart failure (Chronic) I50.32 Nonrheumatic mitral (valve) insufficiency (Chronic) I34.0 Secondary pulmonary hypertension (Chronic) Premature ventricular contractions (Chronic) I49.3 MDS (myelodysplastic syndrome), low grade (Chronic) D46.20 Anemia D64.9 Bladder cancer C67.9 Bronchitis J40 Leukopenia D72.819 Neutropenia D70.9 Pulmonary edema (Resolved) J81.1 Dyspnea (Inactive) R06.00 Educational circumstance (Inactive) Z55.9 Allergies No Known Allergies Allergy (Verified 06/13/19 15:03) Home Medications: Ambulatory Orders Medication Instructions Recorded Multivitamin [Multiple Vitamins] 1 tab PO DAILY 06/26/16 Hubbell Oil/[place]-3 Fatty Acids [Sv 1 cap PO BID 06/26/16 Hubbell Oil 1,000 mg Softgel] Ascorbic Acid [Vitamin C] 500 mg PO BID 08/18/16 Calcium Carbonate/Vitamin D3 1 tab PO QHS 08/18/16 [Calcium 500-Vit D3 600 Tablet] carvedilol 3.125 mg tablet 3.125 mg PO BID #180 tab 03/14/19 furosemide 20 mg tablet 20 mg PO DAILY #90 tab 03/14/19 Doxylamine Succinate [Unisom] 25 mg PO QHS 06/13/19 Surgical History: Surgical History (Last Reviewed 06/13/19 @ 14:08 by Judy Hall) History of bladder surgery Z98.890 small tumor removal History of hernia repair Z98.890, Z87.19 Smoking Status: Former smoker - *Family History Paternal Family History: Family History (Last Reviewed 06/13/19 @ 14:08 by Judy Hall) Mother Diabetes Father Alzheimers disease Review of Systems Constitutional: Denies: Chills, Fever, Weight Change HEENT: Denies: Head Aches, Sinus Congestion, Sinus Drainage Cardiovascular: Reports: Edema. Denies: Chest Pain, Palpitations Respiratory: Reports: Shortness of Breath, Shortness of breath upon exertion. Denies: Cough, Shortness of breath at rest, Sputum production Gastrointestinal: Reports: Constipation. Denies: Abdominal Pain, Hematemesis, Hematochezia, Nausea, Melena, Vomiting Genitourinary: Denies: Dysuria, Frequency Musculoskeletal: Reports: Joint Pain. Denies: Joint Tenderness Skin: Denies: Rash, Wounds Neurological: Reports: Balance problems. Denies: Focal weakness, Numbness, Tingling Psychiatric: Denies: Anxiety, Depression, Homicidal Ideations, Suicidal Ideations Hematologic/ Lymphatic: Denies: Easy Bruising, Easy Bleeding VTE Information - Inpt Only VTE Present on Admission: No VTE Mechan Device Prophylaxis: SCD's VTE Pharm Prophylaxis ordered?: No Reason prophylaxis not ordered:: Medical Contraindication - Physical Exam Vitals/I&O's: Vital Signs Temp Pulse Resp BP Pulse Ox 98.0 F 68 19 H 91/63 93 06/13/19 16:39 06/13/19 16:39 06/13/19 16:39 06/13/19 16:39 06/13/19 16:39 Oxygen Delivery Method Room Air Weight: 163 lb Body Mass Index (BMI) 23.3 Intake and Output for Last 24 Hours 06/11/19 06/12/19 06/13/19 22:59 23:59 23:59 Intake Total 0 / 0 Balance 0 / 0 General: Alert, Oriented x3, Cooperative HEENT: Atraumatic, PERRLA, EOMI, Normocephalic Oral: No Gingival or Mucosal Lesions/ Ulcerations, Dry Mucosa Neck: Supple, No JVD, Negative Carotid Bruits Lungs: Clear to auscultation, No rhonchi, No wheeze, No rales, Diminished Cardiovascular: Regular rate, Regular Rhythm, Normal S1, Normal S2, Murmur - Ejection systolic murmur over aortic region with radiation to carotids. Pansystolic murmur over left lower sternal border and cardiac apex Abdomen: Bowel Sounds Present, Soft, Non Tender Extremities: No edema, Capillary Refill Less than 3 Seconds Skin: No rashes, No breakdown Musculoskeletal: No Tenderness to Palpation of Joints or Extremities Neurological: Cranial nerves II-XII grossly intact Psych/Mental Status: Normal Affect, Appropriate Laboratory Results 06/13/19 13:41: Blood Type A POSITIVE, Antibody Screen NEGATIVE, Crossmatch See Detail 06/13/19 15:28: Crossmatch See Detail 06/13/19 15:43: Sodium 138, Potassium 4.4, Chloride 104, Carbon Dioxide 30.0, Anion Gap 4 L, BUN 17, Creatinine 0.54 L, Estim Creat Clear Calc 57.79, Est GFR (MDRD) Af Amer 185, Est GFR (MDRD) Non-Af 153, BUN/Creatinine Ratio 31.2 H, Glucose 118 H, Calcium 8.6 Assessment/Plan All Active Problems (Last Reviewed 06/13/19 @ 14:08 by Judy Hall) Pulmonary edema (Resolved) The patient is a 83 year old M with history of MDS, transfusion dependent, required every 2 weeks but currently every week. Denies chest pain but has shortness of breath on exertion, dizziness, lightheadedness on standing or quick change of posture. Currently patient feels more short of breath than usual. Patient also history of congestive heart failure. He was sent to ER when hemoglobin was found to be 6.3 in PCP office. WBC count 1.8 thousand, platelet 214,000. Patient follows recreation therapy teacher Dr. Figueroa [] Chest x-ray done in the ER. It was independently reviewed and shows chronic interstitial lung markings but no acute change although is reported as vascular congestion and mild CHF. 1 acute on chronic anemia secondary to transfusion dependent MDS: Patient is being admitted in PCU. Will transfuse 1 unit of PRBC and check posttransfusion H&H. Avoid over transfusion and IV fluids secondary to history of heart failure. Consult Dr. Jimenez 2. 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 Chronic heart failure with preserved EF/diastolic heart failure with mild hypotension: Patient had echo done in October 2017 as reported below. Patient on Lasix 20 mg daily, Coreg 3.125 mg twice daily. Currently blood pressure is on lower side 91/63 but I think that is baseline blood pressure which is only in systolic 90s. 1 time on May 31, 2019, it was 110/51. Interpretation Summary Stage 2 diastolic dysfunction. Normal LV size. Left ventricular systolic function is lower limits of normal. The estimated ejection fraction is 52 %. The left atrium is severely enlarged. Mild-Moderate (1-2+) eccentric mitral valve insufficiency. Pulmonary artery systolic pressure is 42 mmHg. Mild pulmonary hypertension. Moderate focal aortic valve calcification. 4. Valvular heart disease, pulmonary hypertension: Patient has 2+ MR, mild to moderate TR, RVSP 42 mmHg suggestive of mild pulmonary hypertension. On auscultation it seems patient has aortic stenosis too although an echo reported as moderate focal aortic valve calcification. 5. DVT prophylaxis: Bilateral SCDs. CODE STATUS/advanced directive/living will: When different options were discussed, patient and his chose DNR CC arrest Patient does not want artificial life support including intubation, tube feed, ventilator and/chest compression. Total time spent in [id number] encounter in discussion of advanced directive 16 minutes. Laboratory Results 06/13/19 13:41: Blood Type A POSITIVE, Antibody Screen NEGATIVE, Crossmatch See Detail 06/13/19 15:28: Crossmatch See Detail 06/13/19 15:43: Sodium 138, Potassium 4.4, Chloride 104, Carbon Dioxide 30.0, Anion Gap 4 L, BUN 17, Creatinine 0.54 L, Estim Creat Clear Calc 57.79, Est GFR (MDRD) Af Amer 185, Est GFR (MDRD) Non-Af 153, BUN/Creatinine Ratio 31.2 H, Glucose 118 H, Calcium 8.6 Clinical Impression(s) from Imaging Studies Chest X-Ray 06/13/19 15:34 IMPRESSION: Cardiomegaly. Mild degree of vascular congestion and CHF. Inpatient E&M: 80726 Init Hosp L3 Procedures: 22679 Advncd Care Plan 30 Min
[2019-06-13 18:24] LABS: Magnesium 1.9 mg/dL (1.6-2.6)
[2019-06-13 20:36] LABS: Hematocrit 21.1 % (40-54); Hemoglobin 6.8 g/dL (13.0-16.5)
[2019-06-13] MEDS: Calcium Carb/Vitamin D 1 TABLET Tablet PO (21:29)
[2019-06-13] MEDS: Ascorbic Acid 500 MG Tablet PO (21:29)
[2019-06-13] MEDS: MELATONIN 3 MG TABLET PO (21:48)
[2019-06-14] VITALS (12 sets, daily range): BP systolic 92–103; BP diastolic 44–64; PULSE 70–75; RESP 16; TEMP 36.2–36.7; O2SAT 93–97
[2019-06-14 05:58] LABS: Absolute Lymphocyte Count 0.82 X10^3/uL (0.83-4.51); Absolute Neutrophil Count 0.6 X10^3/uL (2.0-7.7); Basophil# 0.01 X10^3/uL; Basophil% 0.5 % (0-1); Eosinophil# 0.01 X10^3/uL; Eosinophils% 0.5 % (0-5); Hematocrit 21.4 % (40-54); Lymphocyte # 0.82 X10^3/ul (4.0); Lymphocyte % 37.8 % (19-41); Mean Corp Hgb Conc 32.7 g/dL (32-36); Mean Corpuscular Hgb 32.6 pg (27.0-32.0); Mean Corpuscular Volume 99.5 fL (80-94); Mean Platelet Vol. 11.5 fl (6.2-12.0); Monocyte# 0.77 X10^3/uL; Monocyte% 35.5 % (0-10); NRBC Flagged by Analyzer 0 % (0-5); Neutrophil # 0.55 X10^3/uL (2.7-7.7); Neutrophil % 25.2 % (47-70); POSITIVE DIFFERENTIAL YES; POSITIVE MORPHOLOGY YES; Platelet Count 115 K/mm3 (150-450); RBC Distribution Width CV 22.4 % (11.6-14.6); RBC Distribution Width SD 75.2 fl (35.1-43.9); Red Blood Count 2.15 M/mm3 (4.6-6.2); White Blood Count 2.2 K/mm3 (4.4-11.0)
[2019-06-14 06:00] LABS: Differential Indicated SCAN CRITERIA MET
[2019-06-14 06:27] LABS: Differential Comment SCANNED
[2019-06-14 06:35] LABS: Anion Gap 4 (5-15); BUN 20 mg/dL (7-18); BUN/Creat Ratio 37.2 RATIO (10-20); Chloride 101 mmol/L (98-107); Creatinine, Serum 0.54 mg/dL (0.70-1.30); EST Glomerular Filtration Rate 155 mL/min (>60); Est Glom Filt Rate - Afr Amer 187 mL/min (>60); Estimated Creatinine Clearance 57.63 ml/min; Glucose 106 mg/dL (74-106); Potassium 4.7 mmol/L (3.5-5.1); Sodium Level 135 mmol/L (136-145); Thyroid Stim Hormone (TSH) 1.88 uIU/mL (0.358-3.74)
[2019-06-14] MEDS: Ascorbic Acid 500 MG Tablet PO (08:26)
[2019-06-14] MEDS: Multivitamins,Therapeutic Tablet 1 TABLET PO (08:26)
[2019-06-14] MEDS: Furosemide 20 MG Tablet PO (08:26)
[2019-06-14 10:43] LABS: Pathologist Review Reviewed
--- NOTE | 2019-06-14 11:02 | CON.PCM_ITS ---
- Problem List (1) Pancytopenia Status: Chronic (2) MDS (myelodysplastic syndrome), low grade Status: Chronic Consult Referring Physician: Hospitalist Consult Results: Pancytopenia secondary to MDS Subjective Date of Service:: 06/14/19 Chief Complaint: Dyspnea History of Present Illness: 83-year-old gentleman admitted with increasing dyspnea, peripheral edema, worsening chronic congestive cardiac failure and severe anemia. 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 He presented with slowly progressive pancytopenia over several years. In 2013 he underwent a bone marrow aspirate and biopsy revealing a hypercellular bone marrow with no increase in blasts, normal cytogenetics and FISH panel. He did not require any specific therapy or supportive transfusions untill August 2017 when he became RBC transfusion dependent. His cahto erythropoietin level was over 500. Since then his transfusion requirements have progressively increased, most recently he has been receiving an average 2 units of packed red blood cells ever y other week. Past Medical History: Chronic Problems (Last Updated 06/14/19 @ 11:[address] Stephanie Figueroa MD) Pancytopenia (Chronic) Anemia (Chronic) Leukopenia (Chronic) Thrombocytopenia (Chronic) Anemia (Chronic) Bone marrow failure anemia type: unspecified bone marrow failure Chronic diastolic (congestive) heart failure (Chronic) Nonrheumatic mitral (valve) insufficiency (Chronic) Secondary pulmonary hypertension (Chronic) Premature ventricular contractions (Chronic) MDS (myelodysplastic syndrome), low grade (Chronic) Past Medical/Surgical History: Past Medical History - Most Recent Inpatient Visit Past Medical History Start: 06/13/19 17:17 Text: Status: Complete Freq: ONCE Protocol: Document 06/13/19 17:22 [facility] [place] (Rec: 06/13/19 17:25 [facility] [place] [id number]) BMI Required to complete PMH What is Patient's BMI 22.9 Past Medical History Unable History Recalled No Query Text:Pt Unable/Family Not Present Neurologic Medical History Hx Stroke/TIA No Hx Dementia/Alzheimer's No Hx Parkinson's Disease No Hx Seizures No Hx Multiple Sclerosis No Hx Migraines No Cardiac Medical History VTE Present on Admission No Hx of Deep Vein Thrombosis/VTE/PE No Hx Hypertension No: hypotension Hx Chest Pain/Angina No Hx Heart Attack No Hx Cardiac Surgery/Stents/Etc. No Hx Heart Failure Yes Hx Pacemaker/AICD No Hx Irregular Heartbeat and/or Afib No: pvc/follows with whg/last visit 03/2019 Hx Anticoagulant Therapy No Query Text:(Coumadin, Aspirin, Plavix, Xarelto, etc.) Hx Pain in Legs when Walking/Leg Cramps No Respiratory Medical History Hx COPD No Hx Emphysema No Hx Smoking Yes Smoking Status Former smoker Tobacco Use Cigarettes Years Smoking 2 Hx Smoking Cessation Date [birth year]06/1955 Hx Tobacco Use in last 12 months No Hx Sleep Apnea No Do you snore loudly (louder than talking No or can be heard through closed doors)? Do you often feel tired/ fatigued/ Yes sleepy during daytime? Has anyone observed you stop breathing No during sleep? STOP Results Negative GI Medical History Hx Ulcer No Hx Hepatitis No Hx Cirrhosis No Hx GI Bleed No Hx Unplanned Weight Loss No Genitourinary Medical History Indwelling Catheter in Place on Arrival/ No Admission Hx Renal Disease No Hx Dialysis No Musculoskeletal History Hx Arthritis No Hx Rheumatoid Arthritis No Endocrine Medical History Hx Diabetes No Hx Thyroid Disease No Hematologic Medical History Hx of Blood Transfusion Yes Hx of Transfusion in last 3 Months Yes Date of Last Transfusion (if within last 06/13/2019 3 months) Ever experience any problems with No transfusion(s)? Hx of Preganancy in last 3 Months N/A Nurse Filling Out Transfusion & SGESSEL Questions: Date: 06/13/19 Time: 17:25 Psycho/Social Medical History Hx Depression No Hx Anxiety No Hx Behavior Disorder No Hx Alcohol Use No Hx Substance Use No Other Medical History Hx Blood Disorders Yes: myelodysplastic syndrome/ leukopenia/neutropenia Hx Anemia Yes: chronic Hx Cancer Yes: bladder ca, MDS Hx Drug Resistant Organism No Wound/Pressure Injury Present on Arrival No: to be assessed per primary /Admission rn Query Text:If yes, chart assessment in Shift/Clinical Findings Central Line/PICC/VAD Present on Arrival No /Admission Antibiotics within last 7 days? No Risk for Readmission Number of Risk Factors 4 At Risk for Readmission Patient is At Risk For Readmission Patient is eligible for Call Back Y Past Medical History Anemia (Chronic) Leukopenia (Chronic) Chronic diastolic (congestive) heart failure (Chronic) Nonrheumatic mitral (valve) insufficiency (Chronic) Secondary pulmonary hypertension (Chronic) Premature ventricular contractions (Chronic) MDS (myelodysplastic syndrome), low grade (Chronic) Anemia (Chronic) Bladder cancer (Chronic) Bronchitis (Chronic) Leukopenia (Chronic) Neutropenia (Chronic) Pulmonary edema (Resolved) Dyspnea (Inactive) Educational circumstance (Inactive) Past Surgical History (Last Reviewed 06/13/19 @ 14:08 by Judy Hall) History of bladder surgery (Resolved) History of hernia repair (Resolved) Paternal Family History: Family History (Last Reviewed 06/13/19 @ 14:08 by Judy Hall) Mother Diabetes Father Alzheimers disease - Social History Smoking Status: Former smoker Tobacco Use: Cigarettes Allergies/Adverse Reactions: Allergy/AdvReac Type Severity Reaction Status Date / Time No Known Allergies Allergy Verified 06/13/19 15:03 Review of Systems Constitutional:: Reports: Weakness, Fatigue, Weight gain - Due to increasing lower extremities edema. Denies: Fever, Sweats, Weight loss, Appetite change, Chills Cardiovascular:: Reports: Ankle swelling, Dyspnea on exertion, Peripheral edema, Shortness of breath. Denies: Chest pain, Palpitations, Orthopnea, PND Respiratory: Reports: Shortness of Breath, Shortness of breath upon exertion. Denies: Cough, Hemoptysis, Wheezing Gastrointestinal:: Denies: Abdominal pain, Nausea, Vomiting, Diarrhea, Constipation, Hematochezia Genitourinary: Denies: Dysuria, Hematuria, 15, Flank pain Musculoskeletal:: Denies: Back pain, Myalgia, Arthralgia Skin: Reports: - - Easy bruises. Denies: Rash, Skin Changes, Wounds Neurological:: Reports: Dizziness - And lightheadedness on change of posture. Denies: Headache, Visual changes, Tinnitus, Hearing loss Psychiatric: Denies: Anxiety, Depression, Homicidal Ideations, Suicidal Ideations Vital Signs Height 5 ft 10 in Weight: 72.8 kg Weight in Pounds 160.5 lbs Pulse Ox 93 Temperature 97.2 F Pulse Rate 72 Respiratory Rate 16 Blood Pressure 103/64 Blood Pressure Position Sitting - Physical Exam General: Alert, Oriented x3, No apparent distress, - - Elderly and frail, ECOG 2, pale HEENT: Atraumatic, PERRLA, EOMI, Normocephalic Oropharynx:: Pale mucosa, Dry mucosa Neck:: Supple, Trachea midline. Negative for: JVD, bilateral Cardiac:: Regular rate, Regular rhythm, Normal S1, Normal S2. Negative for: Murmur Lungs: Clear to auscultation, Diminished - Over both bases, Excusion symmetrical. Negative for: Rhonchi, Wheezes Abdomen:: Bowel sounds x 4, Soft, Non-tender, Non-distended. Negative for: Hepatosplenomegaly Extremities:: Edema, - - Patient in compression pneumatic boots. Negative for: Cyanosis Neurological: Neuro grossly intact Skin:: Ecchymosis. Negative for: Lesions, Rash, Petechiae Psychiatric:: Anxious, Appropriate affect, Euthymic Lymphatics:: Negative for: Cervical lymphadenopathy, Supraclavicular lymphadenopathy Laboratory Data: Laboratory Tests 06/14/19 06/14/19 06/13/19 Range/Units 05:30 05:30 20:23 WBC 2.2 L (4.4-11.0) K/mm3 RBC 2.15 L (4.6-6.2) M/mm3 Hgb 7.0 L 6.8 L (13.0-16.5) g/dL Hct 21.4 L 21.1 L (40-54) % MCV 99.5 H (80-94) fL MCH 32.6 H (27.0-32.0) pg MCHC 32.7 (32-36) g/dL RDW Std Deviation 75.2 H (35.1-43.9) fl RDW Coeff of Harpreet 22.4 H (11.6-14.6) % Plt Count 115 L (150-450) K/mm3 MPV 11.5 (6.2-12.0) fl Immature Gran % (Auto) 0.500 (0.0-0.9) % Neut % (Auto) 25.2 L (47-70) % Lymph % (Auto) 37.8 (19-41) % [place] % (Auto) 35.5 H (0-10) % Eos % (Auto) 0.5 (0-5) % Baso % (Auto) 0.5 (0-1) % Absolute Neuts (auto) 0.6 L (2.0-7.7) X10^3/uL Absolute Lymphs (auto) 0.82 L (0.83-4.51) X10^3/uL Nucleated RBC % 0 (0-5) % Differential Comment SCANNED Diff Path Review Reviewed Sodium 135 L (136-145) mmol/L Potassium 4.7 (3.5-5.1) mmol/L Chloride 101 (98-107) mmol/L Carbon Dioxide 30.0 (21.0-32.0) mmol/L Anion Gap 4 L (5-15) BUN 20 H (7-18) mg/dL Creatinine 0.54 L (0.70-1.30) mg/dL Estim Creat Clear Calc 57.63 ml/min Est GFR (MDRD) Af Amer 187 (>60) mL/min Est GFR (MDRD) Non-Af 155 (>60) mL/min BUN/Creatinine Ratio 37.2 H (10-20) RATIO Glucose 106 (74-106) mg/dL Calcium 9.0 (8.5-10.1) mg/dL Magnesium (1.6-2.6) mg/dL TSH 1.88 (0.358-3.74) uIU/mL Blood Type Antibody Screen Crossmatch 06/13/19 06/13/19 06/13/19 Range/Units 15:43 15:28 15:28 WBC (4.4-11.0) K/mm3 RBC (4.6-6.2) M/mm3 Hgb (13.0-16.5) g/dL Hct (40-54) % MCV (80-94) fL MCH (27.0-32.0) pg MCHC (32-36) g/dL RDW Std Deviation (35.1-43.9) fl RDW Coeff of Harpreet (11.6-14.6) % Plt Count (150-450) K/mm3 MPV (6.2-12.0) fl Immature Gran % (Auto) (0.0-0.9) % Neut % (Auto) (47-70) % Lymph % (Auto) (19-41) % [place] % (Auto) (0-10) % Eos % (Auto) (0-5) % Baso % (Auto) (0-1) % Absolute Neuts (auto) (2.0-7.7) X10^3/uL Absolute Lymphs (auto) (0.83-4.51) X10^3/uL Nucleated RBC % (0-5) % Differential Comment Diff Path Review Sodium 138 (136-145) mmol/L Potassium 4.4 (3.5-5.1) mmol/L Chloride 104 (98-107) mmol/L Carbon Dioxide 30.0 (21.0-32.0) mmol/L Anion Gap 4 L (5-15) BUN 17 (7-18) mg/dL Creatinine 0.54 L (0.70-1.30) mg/dL Estim Creat Clear Calc 57.79 ml/min Est GFR (MDRD) Af Amer 185 (>60) mL/min Est GFR (MDRD) Non-Af 153 (>60) mL/min BUN/Creatinine Ratio 31.2 H (10-20) RATIO Glucose 118 H (74-106) mg/dL Calcium 8.6 (8.5-10.1) mg/dL Magnesium 1.9 (1.6-2.6) mg/dL TSH (0.358-3.74) uIU/mL Blood Type Antibody Screen Crossmatch See Detail 06/13/19 Range/Units 13:41 WBC (4.4-11.0) K/mm3 RBC (4.6-6.2) M/mm3 Hgb (13.0-16.5) g/dL Hct (40-54) % MCV (80-94) fL MCH (27.0-32.0) pg MCHC (32-36) g/dL RDW Std Deviation (35.1-43.9) fl RDW Coeff of Harpreet (11.6-14.6) % Plt Count (150-450) K/mm3 MPV (6.2-12.0) fl Immature Gran % (Auto) (0.0-0.9) % Neut % (Auto) (47-70) % Lymph % (Auto) (19-41) % [place] % (Auto) (0-10) % Eos % (Auto) (0-5) % Baso % (Auto) (0-1) % Absolute Neuts (auto) (2.0-7.7) X10^3/uL Absolute Lymphs (auto) (0.83-4.51) X10^3/uL Nucleated RBC % (0-5) % Differential Comment Diff Path Review Sodium (136-145) mmol/L Potassium (3.5-5.1) mmol/L Chloride (98-107) mmol/L Carbon Dioxide (21.0-32.0) mmol/L Anion Gap (5-15) BUN (7-18) mg/dL Creatinine (0.70-1.30) mg/dL Estim Creat Clear Calc ml/min Est GFR (MDRD) Af Amer (>60) mL/min Est GFR (MDRD) Non-Af (>60) mL/min BUN/Creatinine Ratio (10-20) RATIO Glucose (74-106) mg/dL Calcium (8.5-10.1) mg/dL Magnesium (1.6-2.6) mg/dL TSH (0.358-3.74) uIU/mL Blood Type A POSITIVE Antibody Screen NEGATIVE Crossmatch See Detail Diagnostic Data: Diagnostic Data Chest X-Ray 06/13/19 15:34 IMPRESSION: Cardiomegaly. Mild degree of vascular congestion and CHF. Electronically Signed: David Quintana, at 15:53 EDT , Service support , Assessment and Plan 83-year-old male with severe transfusion dependent refractory anemia slowly progressive (over several years) and pancytopenia due to low risk MDS. Diagnosis was first made in 2013. His disease has slowly and steadily progressed to bone marrow failure with red blood transfusion dependency by the summer 2017. As a disease natural progression continued by 2019 he has required an average 2 units of packed red cells every other week. He was hospitalized June 13, 2019 with severe anemia and worsening chronic congestive heart failure. Plan: 1- Support with packed red blood cell transfusions to a target hemoglobin of > 8 g per DL keeping in mind his history of cardiac disease. He has no evidence for iron or B12 deficiency and his cahto erythropoietin level is over 500 and therefore is unlikely to respond to erythrocyte stimulating agent therapy. Advised monitoring CBC every week after discharge from now on. 5-bira-[id number] therapy with Vidaza has been shown in clinical trials to decrease transfusion requirements. This has been discussed in details and previous outpatient visits, he did not to consent to treatment 3- He is expected to develop increasing iron overload since he became transfusion dependent however the impact of this on his survival, keeping in mind his age and comorbid pre-existing cardiac disease is doubtful. 4 -History of black stools in March 2019 , EGD March 2019 showed no pathology and colonoscopy March 2019 : tubular adenoma. 5-for management of cardiac failure deferred to hospitalist service. Patient was seen with his , impression and plan discussed. We will follow- up in 1 week following discharge. Stephanie Figueroa MD Employment Security Officer, [facility] Divisions of Medical Oncology & Hematology Department of Internal Medicine [place] [phone] This note was generated using a voice recognition system software. Although it was reviewed by the author prior to finalization, it may still contain incorrect words, spelling, and punctuation that were not noted when reviewing prior to saving. If a clinically significant typo or inaccurately typed phrase is noted, please notify the author. Medications: Prescriptions This Visit Medication Instructions Recorded Doxylamine Succinate [Unisom] 25 mg PO QHS 06/13/19 Medications Added to Medication List This Visit Category Date Time Status 0.9% Saline Lock Med 06/14/19 10:40 Active 10 - 40 ml IV UD PRN Carvedilol [Coreg] Med 06/14/19 08:00 Active 3.125 mg PO BIDCM Furosemide [Lasix] Med 06/14/19 10:00 Active 20 mg PO DAILY Multivitamins,Therapeutic [Multivitamin] Med 06/14/19 08:00 Active 1 tablet PO DAILY@0800 Primary Care Provider: Jose Escamilla MD Referring Provider:
--- NOTE | 2019-06-14 11:50 | DCINST_ITS ---
- Discharge Diagnoses Current Active Problems: Current Active and Chronic Problems (Last Updated 06/14/19 @ 11:[address] Stephanie Figueroa MD) Pancytopenia (Chronic) Chronic diastolic (congestive) heart failure (Chronic) MDS (myelodysplastic syndrome), low grade (Chronic) You will use the following diet at home:: Cardiac Your food should be the consistency of: Regular Your liquids should be the consistency of: Regular/Thin Discharge Activity: Return to Normal Activity Allergies/Adverse Reactions: Allergies No Known Allergies Allergy (Verified 06/13/19 15:03) Medications to take at Discharge Multivitamin [Multiple Vitamins] 1 tab PO DAILY 06/26/16 [place] Oil/Liberal-3 Fatty Acids [Sv [place] Oil 1,000 mg Softgel] 1 cap PO BID 06/26/16 Ascorbic Acid [Vitamin C] 500 mg PO BID 08/18/16 Calcium Carbonate/Vitamin D3 [Calcium 500-Vit D3 600 Tablet] 1 tab PO QHS 08/18/16 carvedilol 3.125 mg tablet 3.125 mg PO BID #180 tab 03/14/19 furosemide 20 mg tablet 20 mg PO DAILY #90 tab 03/14/19 Doxylamine Succinate [Unisom] 25 mg PO QHS 06/13/19 Primary Care Physician: Jose Escamilla MD [Primary Care Provider] - Please follow up with your Primary Care Physician in: 1-2 weeks Test Results: Test results from this visit will be discussed in further detail at your follow- up appointment, if applicable. Please Follow Up With: Stephanie Figueroa MD When: 1 week Proposed Discharge Date: 06/14/19
--- NOTE | 2019-06-14 12:02 | PHA.DC.MR ---
Pharmacy Service has performed discharge medication reconciliation for this patient. No new medications issued to patient at time of discharge review. Medications reviewed are from previously reported home medications. The patient's discharge medication list was reviewed for discrepancies and discrepancies were resolved. Home Medications Multivitamin [Multiple Vitamins] 1 tab PO DAILY 06/26/16 [place] Oil/[place]-3 Fatty Acids [Sv [place] Oil 1,000 mg Softgel] 1 cap PO BID 06/26/16 Ascorbic Acid [Vitamin C] 500 mg PO BID 08/18/16 Calcium Carbonate/Vitamin D3 [Calcium 500-Vit D3 600 Tablet] 1 tab PO QHS 08/18/16 carvedilol 3.125 mg tablet 3.125 mg PO BID #180 tab 03/14/19 furosemide 20 mg tablet 20 mg PO DAILY #90 tab 03/14/19 Doxylamine Succinate [Unisom] 25 mg PO QHS 06/13/19
--- NOTE | 2019-06-14 15:44 | DS.PCM_ITS ---
<Salo Arechiga - Last Filed: 06/14/19 16:44> Discharge Date and Diagnosis Date of Admission: 06/13/19 Date of Discharge: 06/14/19 - Primary Discharge Diagnosis Acute on chronic anemia 2/2 MDS Pancytopenia 2/2 MDS Hx chronic diastolic CHF Hx pulm htn - Secondary Discharge Diagnosis Chronic Problems (Last Updated 06/14/19 @ 11:[address] 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 Mild degree of vascular congestion and CHF. Consults: Oncology - [place] Operations: None Procedures: Blood transfusion Summary of Care Provided: Hospital Course: The patient is a 83 year old M with past medical history of myelodysplastic syndrome for which she receives blood transfusions approximately every 2 weeks, patient of Dr. Figueroa, who presented to the emergency room with shortness of breath, lightheadedness when standing. He was found to have a hemoglobin of 6.8. He was also pancytopenic. He was admitted to the PCU and placed on telemetry. He was transfused with 2 units of packed red blood cells per recommendation of hematology oncology. His hemoglobin was rechecked following blood transfusion and improved to 8.0. He may need to pursue more frequent transfusions. He will need to follow-up closely with heme-onc within the next week with recheck of his CBC, he will also need to follow-up with his PCP in 1 to 2 weeks. He was discharged home in stable condition. This patient was seen by Salo Arechiga PA-C under the supervision of Doctor Dexter. [] - Physical Exam Vitals/I&O's: Vital Signs Temp Pulse Resp BP Pulse Ox 97.7 F L 75 16 92/60 95 06/14/19 15:08 06/14/19 15:08 06/14/19 15:08 06/14/19 15:08 06/14/19 15:08 Oxygen Delivery Method Room Air Weight: 160 lb 7.944 oz Body Mass Index (BMI) 22.9 Intake and Output for Last 24 Hours 06/12/19 06/13/19 06/14/19 23:59 23:59 23:59 Intake Total 890 / 890 740 / 740 Output Total 225 / 225 100 / 100 Balance 665 / 665 640 / 640 General: Alert, Oriented x3, Cooperative HEENT: Atraumatic, PERRLA, EOMI, Normocephalic Neck: Supple, No JVD, Negative Carotid Bruits Lungs: Clear to auscultation, Normal air movement Cardiovascular: Regular rate, No murmurs Abdomen: Bowel Sounds Present, Soft, Non Tender Extremities: No edema, Capillary Refill Less than 3 Seconds Skin: No rashes, No breakdown, - - pallor Musculoskeletal: No Tenderness to Palpation of Joints or Extremities Neurological: Cranial nerves II-XII grossly intact Psych/Mental Status: Normal Affect, Appropriate, Alert and oriented to time, place, person, mood and affect Laboratory Results 06/13/19 13:41: Blood Type A POSITIVE, Antibody Screen NEGATIVE, Crossmatch See Detail 06/13/19 15:28: Crossmatch See Detail 06/13/19 15:28: Magnesium 1.9 06/13/19 15:43: Sodium 138, Potassium 4.4, Chloride 104, Carbon Dioxide 30.0, Anion Gap 4 L, BUN 17, Creatinine 0.54 L, Estim Creat Clear Calc 57.79, Est GFR (MDRD) Af Amer 185, Est GFR (MDRD) Non-Af 153, BUN/Creatinine Ratio 31.2 H, Glucose 118 H, Calcium 8.6 06/13/19 20:23: Hgb 6.8 L, Hct 21.1 L 06/14/19 05:30: WBC 2.2 L, RBC 2.15 L, Hgb 7.0 L, Hct 21.4 L, MCV 99.5 H, MCH 32.6 H, MCHC 32.7, RDW Std Deviation 75.2 H, RDW Coeff of Harpreet 22.4 H, Plt Count 115 L, MPV 11.5, Immature Gran % (Auto) 0.500, Neut % (Auto) 25.2 L, Lymph % (Auto) 37.8, [place] % (Auto) 35.5 H, Eos % (Auto) 0.5, Baso % (Auto) 0.5, Absolute Neuts (auto) 0.6 L, Absolute Lymphs (auto) 0.82 L, Nucleated RBC % 0, Differential Comment SCANNED, Diff Path Review Reviewed 06/14/19 05:30: Sodium 135 L, Potassium 4.7, Chloride 101, Carbon Dioxide 30.0, Anion Gap 4 L, BUN 20 H, Creatinine 0.54 L, Estim Creat Clear Calc 57.63, Est GFR (MDRD) Af Amer 187, Est GFR (MDRD) Non-Af 155, BUN/Creatinine Ratio 37.2 H, Glucose 106, Calcium 9.0, TSH 1.88 Current Medications Acetaminophen (Tylenol) 650 mg PO Q6H PRN PRN PRN Reason: Pain Score 1-10/Temp > 100.7 F Albuterol Sulfate (Ventolin Aerosols) 2.5 mg INHALATION Q2H PRN PRN PRN Reason: SOB/Wheezing Ascorbic Acid (Vitamin C) 500 mg PO BID [facility] Last Admin: 06/14/19 08:26 Dose: 500 mg Documented by: Calcium/Vitamin D (Os-Owen 500mg + D) 1 tablet PO QHS [facility] Last Admin: 06/13/19 21:29 Dose: 1 tablet Documented by: [facility] Last Admin: 06/14/19 15:16 Dose: Not Given Documented by: Diphenhydramine HCl (Benadryl) 25 mg PO QHS PRN PRN Reason: INSOMNIA Furosemide (Lasix) 20 mg PO DAILY [facility] Last Admin: 06/14/19 08:26 Dose: 20 mg Documented by: Furosemide (Lasix) 40 mg IV X1 PRN PRN Reason: SOB, posttransfusion Glucagon () 1 mg IM .X1 PRN PRN Reason: Hypoglycemia Dextrose (Dextrose 10%-Water) 250 mls @ 999 mls/hr IV .Q16M PRN; Protocol PRN Reason: HYPOGLYCEMIA Melatonin (Melatonin) 3 mg PO QHS PRN PRN PRN Reason: INSOMNIA Last Admin: 06/13/19 21:48 Dose: 3 mg Documented by: Morphine Sulfate () 2 mg IV Q3H PRN PRN PRN Reason: Pain Score 6-10/10 Multivitamins (Multivitamin) 1 tablet PO DAILY@0800 JOSE ALFREDO Last Admin: 06/14/19 08:26 Dose: 1 tablet Documented by: Nitroglycerin (Nitrostat) 0.4 mg SUBLINGUAL Q5M PRN PRN Reason: CARDIAC/CHEST PAIN Ondansetron HCl (Zofran) 4 mg IV Q8H PRN PRN PRN Reason: NAUSEA/VOMITING Oxycodone HCl (Oxyir) 5 mg PO Q4H PRN PRN PRN Reason: Pain Score 4-5/10 Senna/Docusate Sodium (Senokot-S, Shandra-Colace) 2 tablet PO BID PRN PRN PRN Reason: Constipation Sodium Chloride () 10 - 40 ml IV UD PRN PRN Reason: SALINE FLUSH Discharge Diet: Low fat/ Low Cholesterol, 2000 mg Sodium Diet Discharge Activity: Return to Normal Activity Home Medications: Medications to take at Discharge Multivitamin [Multiple Vitamins] 1 tab PO DAILY 06/26/16 [place] Oil/[place]-3 Fatty Acids [Sv [place] Oil 1,000 mg Softgel] 1 cap PO BID 06/26/16 Ascorbic Acid [Vitamin C] 500 mg PO BID 08/18/16 Calcium Carbonate/Vitamin D3 [Calcium 500-Vit D3 600 Tablet] 1 tab PO QHS 08/18/16 carvedilol 3.125 mg tablet 3.125 mg PO BID #180 tab 03/14/19 furosemide 20 mg tablet 20 mg PO DAILY #90 tab 03/14/19 Doxylamine Succinate [Unisom] 25 mg PO QHS 06/13/19 Primary Care Physician: Jose Escamilla MD [Primary Care Provider] - Please follow up with your Primary Care Physician in: 1-2 weeks Please Follow Up With: Stephanie Figueroa MD When: 1 week Disposition: Home Minutes spent on discharge:: 35 Patient Condition:: Stable Medical Necessity - Tobacco Use Smoking Status: Former smoker Tobacco Use: Cigarettes Meaningful Use Info Meaningful Use Diagnoses (Choose all that apply): None applicable <Westley Dexter - Last Filed: 06/14/19 17:54> Discharge Date and Diagnosis - Secondary Discharge Diagnosis Chronic Problems (Last Updated 06/14/19 @ 11:[address] 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 I have independently interviewed and examined the patient and reviewed pertinent historical, laboratory, and other data. Please refer to Salo Arechiga PA-C note for details of this patient's presentation, findings, and recommendations. I have reviewed Salo Arechiga PA-C note and concur with documented findings. In brief, patient is a 83-year-old gentleman with history of myelodysplastic syndrome transfusion dependent who presented with symptomatic anemia hemoglobin was found to be 6.8 admitted to a monitored bed transfused with 2 unit PRBC Hospital course: As documented above - Physical Exam Vitals/I&O's: Vital Signs Temp Pulse Resp BP Pulse Ox 97.7 F L 74 16 92/60 95 06/14/19 15:08 06/14/19 15:15 06/14/19 15:08 06/14/19 15:08 06/14/19 15:08 Oxygen Delivery Method Room Air Weight: 72.8 kg Body Mass Index (BMI) 22.9 Intake and Output for Last 24 Hours 06/12/19 06/13/19 06/14/19 23:59 23:59 23:59 Intake Total 890 / 890 740 / 740 Output Total 225 / 225 100 / 100 Balance 665 / 665 640 / 640 Laboratory Results 06/13/19 13:41: Blood Type A POSITIVE, Antibody Screen NEGATIVE, Crossmatch See Detail 06/13/19 15:28: Crossmatch See Detail 06/13/19 15:28: Magnesium 1.9 06/13/19 15:43: Sodium 138, Potassium 4.4, Chloride 104, Carbon Dioxide 30.0, Anion Gap 4 L, BUN 17, Creatinine 0.54 L, Estim Creat Clear Calc 57.79, Est GFR (MDRD) Af Amer 185, Est GFR (MDRD) Non-Af 153, BUN/Creatinine Ratio 31.2 H, Glucose 118 H, Calcium 8.6 06/13/19 20:23: Hgb 6.8 L, Hct 21.1 L 06/14/19 05:30: WBC 2.2 L, RBC 2.15 L, Hgb 7.0 L, Hct 21.4 L, MCV 99.5 H, MCH 32.6 H, MCHC 32.7, RDW Std Deviation 75.2 H, RDW Coeff of Harpreet 22.4 H, Plt Count 115 L, MPV 11.5, Immature Gran % (Auto) 0.500, Neut % (Auto) 25.2 L, Lymph % (Auto) 37.8, [place] % (Auto) 35.5 H, Eos % (Auto) 0.5, Baso % (Auto) 0.5, Absolute Neuts (auto) 0.6 L, Absolute Lymphs (auto) 0.82 L, Nucleated RBC % 0, Differential Comment SCANNED, Diff Path Review Reviewed 06/14/19 05:30: Sodium 135 L, Potassium 4.7, Chloride 101, Carbon Dioxide 30.0, Anion Gap 4 L, BUN 20 H, Creatinine 0.54 L, Estim Creat Clear Calc 57.63, Est GFR (MDRD) Af Amer 187, Est GFR (MDRD) Non-Af 155, BUN/Creatinine Ratio 37.2 H, Glucose 106, Calcium 9.0, TSH 1.88 06/14/19 15:53: Hgb 8.0 L, Hct 23.8 L OBSV E&M: [id number] Observation care discharge
[2019-06-14 16:26] LABS: Hematocrit 23.8 % (40-54)
== END 2019-06-14 11:52 | disposition home or self-care (01) ==
LOC: ED 16:10 → PCU 17:27
PROVIDERS: Physician Assistant; Admitting Provider Internal Medicine; Emergency Provider Emergency Medicine; PCP Family Medicine; Visit Provider Internal Medicine
DX: D61.818 Other pancytopenia (principal); D46.9 Myelodysplastic syndrome, unspecified; I50.32 Chronic diastolic (congestive) heart failure; I27.20 Pulmonary hypertension, unspecified; I49.3 Ventricular premature depolarization; I45.10 Unspecified right bundle-branch block; R94.31 Abnormal electrocardiogram [ECG] [EKG]; Z79.899 Other long term (current) drug therapy; Z87.891 Personal history of nicotine dependence
CPT/HCPCS: 36415; 36430; 71045; 80048; 83735; 84443; 85014; 85018; 85025; 86850; 86900; 86901; 86920; 86922; 93005; 99218; 99251; 99285; J7040; P9016; A4216; G0378; G0463

== ENCOUNTER → 2019-07-11 16:21 | Outpatient (CLI) | payer MEDICARE, SELFPAY ==
[2019-07-06 08:47] VITALS: BMI 22.2
--- NOTE | 2019-07-11 16:30 | RAD_ITS ---
STUDY: X-RAY - ABDOMEN/PELVIS REASON FOR EXAM: Male, 83 years old. patient complains of abdominal pain TECHNIQUE: Supine and erect views COMPARISON: None. FINDINGS: Normal visualized lung bases. Colonic air-fluid levels are noted in the left upper quadrant of the abdomen. There is no demonstrated free abdominal air. The visualized liver, spleen and kidneys are grossly normal in size and morphology. Normal soft tissue structures. Normal visualized osseous structures. RAD/Abd Inc Decub and/or Erect IMPRESSION: Colonic air-fluid levels are seen in the left upper quadrant of the abdomen. This finding is nonspecific and may be normal or traveling representative of mild focal colonic ileus. There is no evidence of obstruction, bowel dilatation, or free intraperitoneal air. Electronically Signed: Caden Vasquez MD at 16:50 EDT , Service support ,
== END ==
PROVIDERS: PCP Family Medicine; Referring Provider Family Medicine; Visit Provider Family Medicine
DX: R10.9 Unspecified abdominal pain (principal)
CPT/HCPCS: 74019

== ENCOUNTER 2019-07-11 19:14 | Emergency (ER) | payer MEDICARE, SELFPAY ==
[2019-07-06 08:47] VITALS: BMI 22.2
[2019-07-11 19:15] VITALS: BP 86/38; PULSE 71; RESP 12; TEMP 37.3; O2SAT 99; BMI 24.3
--- NOTE | 2019-07-11 19:35 | ED.VIS.GI ---
History of Present Illness Chief Complaint: Constipation Informant: Patient - Abdominal Pain/Flank Pain Onset: Today - unable to have BM; feels like needs to Context: Gradual Onset Timing: Continuous Quality: - - bloating Location: Diffuse Current Severity: Mild Maximum Severity: Mild Worsened by: Nothing Relieved by: Nothing - Nausea/Vomiting/Emesis GI Symptom: Nausea, Vomiting Onset: Today Quality: Nonbilious. Negative for: Blood streaks, Coffee ground, Hematemesis Severity: Mild - Diarrhea/Melena/Hematochezia GI Symptom: Negative for: Diarrhea, Melena, Hematochezia Associated Symptoms: Negative for: Dysuria, Frequency, Hematuria, Urgency Narrative: Patient states he has had issues with constipation for about 3 weeks. His doctor has him on some medicines. Today he felt like he needed to go but was having difficulty. He took some laxatives and magnesium citrate, and entire bottle. About an hour or so later he had a small bowel movement but still feels like he needs to and cannot. He went to his doctor and saw a practitioner but not his own PCP, he had an x-ray that was abnormal so he was sent here to the ER. He states he vomited today. He does not have any abdominal pain. He states he feels bloated but has felt like that for 3 or 4 weeks at least. He has not tried an enema. - Past Medical History (1) Anemia Status: Chronic (2) Chronic diastolic (congestive) heart failure Status: Chronic (3) Leukopenia Status: Chronic (4) MDS (myelodysplastic syndrome), low grade Status: Chronic (5) Nonrheumatic mitral (valve) insufficiency Status: Chronic (6) Premature ventricular contractions Status: Chronic (7) Secondary pulmonary hypertension Status: Chronic Past Medical History - Allergies and Home Meds Allergies/Adverse Reactions: Allergies No Known Allergies Allergy (Verified 06/20/19 09:41) Primary Care Physician: Jose Escamilla MD [Primary Care Provider] - 3-5 Days if not improving Surgical History: - - No prior abdominal surgeries Smoking Status: Former smoker Review of Systems General: Reports: Malaise. Denies: Chills, Fever, Sweats Eyes: Denies: Visual changes - bilaterally, Diplopia ENT: Denies: Rhinorrhea, Sore throat Cardiovascular: Denies: Chest pain, Palpitations Respiratory: Reports: Cough - Minor according to patient. Denies: Dyspnea, Sputum, Dyspnea on exertion, Orthopnea Gastrointestinal: Reports: Nausea, Vomiting, Constipation. Denies: Abdominal pain, Diarrhea, Melena, Hematochezia Genitourinary: Denies: Dysuria, Hematuria, Frequency Musculoskeletal: Reports: Swelling - Chronic both legs, no change. Denies: Back pain, Extremity Pain Skin: Denies: Rash, Wounds Neurological: Denies: Headache, Weakness, Numbness Physical Exam Vital Signs/Narrative: Vital Signs Temp Pulse Resp BP Pulse Ox 07/11/19 19:15 99.2 F H 71 12 86/38 L 99 Inital Vital Signs reviewed: Yes General: Well nourished, Well developed, No Acute Distress Head: Normocephalic, Atraumatic Eyes: Perrl, EOMI ENT: Moist mucous membranes, No rhinorrhea Neck: Supple, Nontender Cardiovascular: Regular rate, Regular rhythm, Murmur - Systolic, decrescendo Respiratory: No distress, CTA bilaterally, Chest nontender Abdomen: Soft, Nontender, Nondistended, No masses, Hyperactive bowel sounds Back: Nontender, Normal Inspection Extremities: Nontender, Edema - 3+ bilateral lower extremity edema, symmetric, to knees. Negative for: Calf Tenderness Skin: Normal color, No rash, No Trauma Neurological: Alert, Oriented x3, Cranial nerves II-XII grossly intact, Normal Strength, Normal Sensation Psychological: Normal affect, Normal Mood Diagnostic/Tx/Re-eval Laboratory Tests 07/11/19 07/11/19 07/11/19 Range/Units 20:05 20:05 19:24 WBC (4.4-11.0) K/mm3 RBC (4.6-6.2) M/mm3 Hgb (13.0-16.5) g/dL Hct (40-54) % MCV (80-94) fL MCH (27.0-32.0) pg MCHC (32-36) g/dL RDW Std Deviation (35.1-43.9) fl RDW Coeff of Harpreet (11.6-14.6) % Plt Count (150-450) K/mm3 MPV (6.2-12.0) fl Immature Gran % (Auto) (0.0-0.9) % Neut % (Auto) (47-70) % Lymph % (Auto) (19-41) % [place] % (Auto) (0-10) % Eos % (Auto) (0-5) % Baso % (Auto) (0-1) % Absolute Neuts (auto) (2.0-7.7) X10^3/uL Absolute Lymphs (auto) (0.83-4.51) X10^3/uL Nucleated RBC % (0-5) % Differential Comment Sodium 136 (136-145) mmol/L Potassium 4.3 (3.5-5.1) mmol/L Chloride 101 (98-107) mmol/L Carbon Dioxide 31.0 (21.0-32.0) mmol/L Anion Gap 4 L (5-15) BUN 22 H (7-18) mg/dL Creatinine 0.73 (0.70-1.30) mg/dL Estim Creat Clear Calc 57.79 ml/min Est GFR (MDRD) Af Amer 132 (>60) mL/min Est GFR (MDRD) Non-Af 109 (>60) mL/min BUN/Creatinine Ratio 30.2 H (10-20) RATIO Glucose 130 H (74-106) mg/dL Lactic Acid 1.7 (0.4-1.9) mmol/L Calcium 9.0 (8.5-10.1) mg/dL Urine Color Yellow (Yellow) Urine Clarity Sl Cldy (Clear) Urine pH 5.0 (5.0 - 8.0) Ur Specific [place] 1.025 (1.002-1.030) Urine Protein 100 H (Negative) mg/dl Urine Glucose (UA) Normal (Normal) mg/dl Urine Ketones 5 H (Negative) mg/dl Urine Occult Blood 50 H (Negative) /ul Urine Nitrite Negative (Negative) Urine Bilirubin 1 H (Negative) mg/dL Urine Urobilinogen 4 H (Normal) mg/dl Ur Leukocyte Esterase 25 H (Negative) /ul Urine RBC 0-5 SEEN (0-5) /hpf Urine WBC 0-5 SEEN (0-5) /hpf Ur Squamous Epith Cells 0-5 SEEN (0-5) /hpf Calcium Oxalate Crystal RARE (<or=2+) /hpf Amorphous Sediment 1+ URATE Urine Bacteria 0 SEEN (None Seen) /hpf Urine Mucus RARE (<or=2+) /hpf 07/11/19 Range/Units 19:24 WBC 2.8 L (4.4-11.0) K/mm3 RBC 2.28 L (4.6-6.2) M/mm3 Hgb 7.4 L (13.0-16.5) g/dL Hct 22.7 L (40-54) % MCV 99.6 H (80-94) fL MCH 32.5 H (27.0-32.0) pg MCHC 32.6 (32-36) g/dL RDW Std Deviation 68.4 H (35.1-43.9) fl RDW Coeff of Harpreet 20.2 H (11.6-14.6) % Plt Count 93 L (150-450) K/mm3 MPV 11.8 (6.2-12.0) fl Immature Gran % (Auto) 0.700 (0.0-0.9) % Neut % (Auto) 27.6 L (47-70) % Lymph % (Auto) 24.7 (19-41) % [place] % (Auto) 46.2 H (0-10) % Eos % (Auto) 0.4 (0-5) % Baso % (Auto) 0.4 (0-1) % Absolute Neuts (auto) 0.8 L (2.0-7.7) X10^3/uL Absolute Lymphs (auto) 0.69 L (0.83-4.51) X10^3/uL Nucleated RBC % 0 (0-5) % Differential Comment SCANNED Sodium (136-145) mmol/L Potassium (3.5-5.1) mmol/L Chloride (98-107) mmol/L Carbon Dioxide (21.0-32.0) mmol/L Anion Gap (5-15) BUN (7-18) mg/dL Creatinine (0.70-1.30) mg/dL Estim Creat Clear Calc ml/min Est GFR (MDRD) Af Amer (>60) mL/min Est GFR (MDRD) Non-Af (>60) mL/min BUN/Creatinine Ratio (10-20) RATIO Glucose (74-106) mg/dL Lactic Acid (0.4-1.9) mmol/L Calcium (8.5-10.1) mg/dL Urine Color (Yellow) Urine Clarity (Clear) Urine pH (5.0 - 8.0) Ur Specific [place] (1.002-1.030) Urine Protein (Negative) mg/dl Urine Glucose (UA) (Normal) mg/dl Urine Ketones (Negative) mg/dl Urine Occult Blood (Negative) /ul Urine Nitrite (Negative) Urine Bilirubin (Negative) mg/dL Urine Urobilinogen (Normal) mg/dl Ur Leukocyte Esterase (Negative) /ul Urine RBC (0-5) /hpf Urine WBC (0-5) /hpf Ur Squamous Epith Cells (0-5) /hpf Calcium Oxalate Crystal (<or=2+) /hpf Amorphous Sediment Urine Bacteria (None Seen) /hpf Urine Mucus (<or=2+) /hpf - Medical Decision Making Patient had a very benign abdomen. Per the patient and 's complaint, because of an abnormal x-ray prior to being sent here, they were to be seen for a bowel obstruction. I reviewed the abdominal x-ray and the radiologist interpretation that was in our system, specifically said that there was no obstruction, that the only abnormality was an air-fluid level in the colon, which was likely caused because earlier today prior to the x-ray the patient drank an entire bottle of magnesium citrate. This in conjunction with his benign abdomen is consistent with constipation only. We gave the patient a enema, which resulted in him having a good bowel movement and feeling much better with resolution of his symptoms. His blood pressure was low originally, so I did more testing, it was unremarkable, the patient was able to sit up and stand up without any lightheadedness and states that a blood pressure of 90 is his norm. His pancytopenia is chronic and related to his myelodysplastic syndrome. was here to pick him up and he was more than happy to be discharged home. He has stool softeners that he is currently still taking at home which he was encouraged to continue doing so. ED Disposition - Plan for ED Patient: Disposition: Home or Assisted Living Diagnosis: Constipation, Pancytopenia Instructions: ED Impaction Fecal Treated Referrals: Jose Escamilla MD [Primary Care Provider] - 3-5 Days if not improving
[2019-07-11] MEDS: Ondansetron 4 MG/2 ML Vial IV (19:40)
[2019-07-11 19:53] LABS: Absolute Lymphocyte Count 0.69 X10^3/uL (0.83-4.51); Absolute Neutrophil Count 0.8 X10^3/uL (2.0-7.7); Basophil# 0.01 X10^3/uL; Basophil% 0.4 % (0-1); Eosinophil# 0.01 X10^3/uL; Eosinophils% 0.4 % (0-5); Hematocrit 22.7 % (40-54); Hemoglobin 7.4 g/dL (13.0-16.5); Lymphocyte # 0.69 X10^3/ul (4.0); Lymphocyte % 24.7 % (19-41); Mean Corp Hgb Conc 32.6 g/dL (32-36); Mean Corpuscular Hgb 32.5 pg (27.0-32.0); Mean Corpuscular Volume 99.6 fL (80-94); Mean Platelet Vol. 11.8 fl (6.2-12.0); Monocyte# 1.29 X10^3/uL; Monocyte% 46.2 % (0-10); NRBC Flagged by Analyzer 0 % (0-5); Neutrophil # 0.77 X10^3/uL (2.7-7.7); Neutrophil % 27.6 % (47-70); POSITIVE COUNT YES; POSITIVE DIFFERENTIAL YES; POSITIVE MORPHOLOGY YES; Platelet Count 93 K/mm3 (150-450); RBC Distribution Width CV 20.2 % (11.6-14.6); RBC Distribution Width SD 68.4 fl (35.1-43.9); Red Blood Count 2.28 M/mm3 (4.6-6.2); White Blood Count 2.8 K/mm3 (4.4-11.0)
[2019-07-11 19:56] LABS: Differential Indicated SCAN CRITERIA MET
[2019-07-11 20:01] LABS: Anion Gap 4 (5-15); BUN 22 mg/dL (7-18); BUN/Creat Ratio 30.2 RATIO (10-20); Chloride 101 mmol/L (98-107); Creatinine, Serum 0.73 mg/dL (0.70-1.30); EST Glomerular Filtration Rate 109 mL/min (>60); Est Glom Filt Rate - Afr Amer 132 mL/min (>60); Estimated Creatinine Clearance 57.79 ml/min; Glucose 130 mg/dL (74-106); Potassium 4.3 mmol/L (3.5-5.1); Sodium Level 136 mmol/L (136-145)
[2019-07-11 20:10] LABS: Bacteria 0 SEEN /hpf (None Seen)
[2019-07-11 20:18] LABS: Color, Urine Yellow (Yellow); Glucose, Dipstick Normal (Normal); Ketone-Dipstick 5 mg/dl (Negative); Leukocyte Esterase-Dipstick 25 /ul (Negative); Nitrite-Dipstick Negative (Negative); Occult Blood-Urine 50 /ul (Negative); Protein-Dipstick 100 mg/dl (Negative); Specific Gravity, Urine 1.025 (1.002-1.030); Urine Urobilinogen 4 mg/dl (Normal)
--- NOTE | 2019-07-11 20:20 | RAD_ITS ---
STUDY: X-RAY CHEST REASON FOR EXAM: Male, 83 years old. SENT IN BY PCP FOR and quot;BOWEL OBSTRUCTION and quot;. N/V TODAY. TECHNIQUE: Single AP portable view of the chest. COMPARISON: Prior study of 06/13/2019 FINDINGS: surveillance system monitor leads are present. There are streaky fibrotic or atelectatic changes of the left lung base. There is no demonstrated pleural abnormality. There is mild cardiac enlargement. Normal mediastinum and heena. There is prominence of the pulmonary hilar arteries and peripheral pulmonary arteries, consistent with congestive heart failure (CHF). There are calcified plaques of the aortic arch. Normal visualized thoracic spine. Normal visualized ribs, clavicles, and shoulders. There is no demonstrated abnormality of the visualized soft tissue structures of the upper abdomen. RAD/Chest 1 View (Portable) IMPRESSION: 1. Mild cardiomegaly. 2. Calcified plaques of the aortic arch. 3. Mild CHF. 4. Streaky fibrotic or atelectatic changes of the left lung base. 5. Findings are similar to the previous study. Electronically Signed: Caden Vasquez MD at 20:36 EDT , Service support ,
[2019-07-11 20:23] LABS: Differential Comment SCANNED
[2019-07-11 20:42] LABS: Lactic Acid 1.7 mmol/L (0.4-1.9)
[2019-07-11 20:43] LABS: Urine Bilirubin Dipstick 1 mg/dL (Negative)
[2019-07-11 20:44] LABS: Red Blood Cells-Urine 0-5 SEEN /hpf (0-5); Squamous Epithelial Cells - UA 0-5 SEEN /hpf (0-5); White Blood Cells 0-5 SEEN /hpf (0-5)
[2019-07-11 20:45] LABS: Amorphous Sediment 1+ URATE; Calcium Oxalate Crystals Ur RARE /hpf (<or=2+); Mucous, Urine RARE /hpf (<or=2+); Urine Clarity Sl Cldy (Clear)
[2019-07-11 21:06] VITALS: BP 94/70; PULSE 75; RESP 21; O2SAT 95
[2019-07-11 22:59] VITALS: BP 87/76; PULSE 78; RESP 16; O2SAT 95
== END 2019-07-11 23:03 | disposition home or self-care (01) ==
PROVIDERS: Emergency Provider Emergency Medicine; PCP Family Medicine
DX: K59.00 Constipation, unspecified (principal); D61.818 Other pancytopenia; D46.20 Refractory anemia with excess of blasts, unspecified; I27.29 Other secondary pulmonary hypertension; I50.32 Chronic diastolic (congestive) heart failure; I34.0 Nonrheumatic mitral (valve) insufficiency; I49.3 Ventricular premature depolarization; Z87.891 Personal history of nicotine dependence
CPT/HCPCS: 36415; 71045; 74019; 80048; 81001; 83605; 85025; 87040; 96361; 96374; 99285; J7040; A4216; J2405